=== PATIENT | female | born 1935 ===

== ENCOUNTER 2016-09-27 17:15 | Inpatient (IN) | payer OTHER, MEDICARE ==
[~2016-09-27] VITALS: Ht 165.1 cm; Wt 95.3 kg
[~2016-09-27 17:15] MED LIST: AMIODARONE200 MG PO; CLONAZEPAM0.5 MG PO; CLONAZEPAM1 MG PO; CYMBALTA60 MG PO; DILTIAZEM HCL120 M2 PO; DILTIAZEM HCL180 MG PO; DIOVAN 160 MG160 MG PO; FUROSEMIDE20 MG PO; FUROSEMIDE40 MG PO; HYDRALAZINE HCL10 MG PO; HYDROXYCHLOROQ200 MG PO; LEVOFLOXACIN500 MG PO; LEVOTHROID SO0.05 MG PO; NEXIUM 40MG40 MG PO; NOVOLOG MI300 UNITS/ SC; NOVOLOG MIX 70/33 ML SC; PREDNISONE 2.52.5 MG PO; PREDNISONE5 MG PO; Robitussin AC PO; TOPROL XL25 MG PO; XARELTO20 M1 PO; [UNRECOGNIZED DRUG - OTHER] PO
--- NOTE | 2016-09-27 17:37 | ED DYSPNEA/ASTHMA COMPLAINT ---
History of Present Illness General Chief Complaint: Upper Respiratory Sx/Fever Stated Complaint: FEVER,COUGH,CONGESTION Source: patient, family Exam Limitations: no limitations Vital Signs & Intake/Output Vital Signs & Intake/Output Vital Signs Date Time Temp Pulse Resp B/P B/P Pulse O2 O2 Flow FiO2 Mean Ox Delivery Rate 10/01 1537 97.5 20 96 Room Air 10/01 1456 100 140/72 10/01 1455 100 140/98 10/01 0928 98 154/90 10/01 0927 98 154/90 10/01 0803 97.8 98 24 154/90 93 Room Air 10/01 0800 Room Air 10/01 0642 95 124/76 10/01 0000 Room Air 09/30 2300 98.8 104 22 126/74 96 Room Air 09/30 2132 104 126/74 ED Intake and Output 10/01 0000 09/30 1200 Intake Total 1324 Output Total 1600 400 Balance -276 -400 Intake, IV 294 Intake, Oral 1030 Number 0 Bowel Movements Output, Urine 1600 400 Allergies Coded Allergies: NO KNOWN ALLERGIES (NONE) (09/06/10) Triage Nurses Notes Reviewed? yes HPI: 80-year-old female arrived to triage to room 1 for evaluation of cough and congestion that occurred 2 days ago. She has been having mild shortness of breath and wheezing with no fever. sHe denies any chest pain or abdominal pain. She denies any type of pain at this time. She does have a slight sore throat but no ear pain or sinus congestion. (MADHAV ACUNA APRN) Reconcile Medications Albuterol Sulfate (Ventolin Hfa) 90 MCG HFA.AER.AD 2 PUF INH Q6 BREATHING Budesonide/Formoterol Fumarate (Symbicort 80-4.5 Mcg Inhaler) 80 MCG-4.5 MCG/ ACTUATION HFA.AER.AD 2 PUF INH BID brathing Calcium Carbonate/Vitamin D3 (Calcium 500 + D Tablet) (Unknown Strength) TABLET (Unknown Dose) PO DAILY SUPPLEMENT (Reported) Clonazepam 0.5 MG TABLET 1 TAB PO QPM SLEEP (Reported) Diltiazem HCl (Cartia Xt) 120 MG CAP.ER.24H 1 CAP PO DAILY HEART/BP (Reported ) Duloxetine HCl 60 MG CAPSULE.DR 1 CAP PO DAILY NERVE PAIN (Reported) Esomeprazole (Nexium) 40 MG CAPSULE.DR 1 CAP PO DAILY GI (Reported) Furosemide 40 MG TABLET 1 TAB PO DAILY DIURETIC (Reported) Hydroxychloroquine Sulfate 200 MG TABLET 1 TAB PO DAILY RA . Insulin Degludec (Tresiba Flextouch U-200) 200 UNIT/ML (3 ML) INSULN.PEN 40 UNITS SC DAILY DM (Reported) Levothyroxine Sodium 50 MCG TABLET 1 TAB PO DAILY THYROID (Reported) Metoprolol Succinate 25 MG TAB 0.5 TAB PO DAILY HEART/BP (Reported) Mv,Min #10/FA/D3/Alip Acid/Lut (Strovite One Caplet) 1 MG-1,000 UNIT-15 MG-5 MG TABLET 1 TAB PO DAILY SUPPLEMENT (Reported) Prednisone 2.5 MG TABLET 1 TAB PO DAILY RA (Reported) Prednisone 20 MG TABLET 40 MG PO DAILY help brathing please take 2 tabs daily for 4 days, start tomorrow and stop after 4 days Rivaroxaban (Xarelto) 20 MG TABLET 1 TAB PO DAILY BLOOD THINNER (Reported) with food Valsartan 160 MG TABLET 1 TAB PO DAILY BP (Reported) (XIOMARA MORSE,ROWDY Redman) Past History Travel History Traveled to [place] past 21 day No Medical History Any Pertinent Medical History? 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 MOTHER (Had a history of diabetes). . Hx Contributory? No (MADHAV ACUNA APRN) Review of Systems Review of Systems Constitutional: Reports: weakness. EENTM: Reports: throat pain. Respiratory: Reports: cough, short of breath, wheezing. Cardiovascular: Reports: no symptoms. GI: Reports: no symptoms. Genitourinary: Reports: no symptoms. Musculoskeletal: Reports: no symptoms. Skin: Reports: no symptoms. Neurological/Psychological: Reports: no symptoms. Hematologic/Endocrine: Reports: no symptoms. Immunologic/Allergic: Reports: no symptoms. All Other Systems: Reviewed and Negative (MADHAV ACUNA APRN) Physical Exam Physical Exam General Appearance: well developed/nourished, no apparent distress, alert, awake , comfortable Head: atraumatic, normal appearance Neck: normal inspection, supple, full range of motion Respiratory: wheezing Cardiovascular: regular rate/rhythm Peripheral Pulses: 2+ radial (R), 2+ radial (L) Gastrointestinal: normal bowel sounds, soft, non-tender Extremities: normal inspection, normal capillary refill, normal range of motion, no edema Neurologic/Psych: no motor/sensory deficits, awake, alert, oriented x 3, normal gait, normal mood/affect Skin: intact, normal color, warm/dry Core Measures ACS in differential dx? No Severe Sepsis Present: No Septic Shock Present: No (MADHAV ACUNA APRN) Progress Differential Diagnosis: bronchitis, CHF, pneumonia, FLU Plan of Care: Orders Procedure Date/time Status RT: Reevaluation 10/01 1136 Active RT OVER-RIDE 10/01 UNK Complete Discharge Patient 10/01 UNK Active AEROSOL CHG 09/30 UNK Complete Current Medications Sig/Jackson Start time Last Medication Dose Stop Time Status Admin Azithromycin 250 MG DAILY 10/01 1000 CAN (Zithromax) Laboratory Tests 10/01/16 0647: Anion Gap 8, Estimated GFR > 60, BUN/Creatinine Ratio 28.3 H CXR Impression: SEE BELOW Initial ED EKG: AFIB, nonspecific ST T wave chg Prior EKG: unchanged Comments: PATIENT: NICOLE MACHUCA PRESENT AGE: 80 PATIENT ACCOUNT NO: [id number] : 35 LOCATION: [facility] ORDERING PHYSICIAN: MADHAV ACUNA APRN SERVICE DATE: 09/27/16 EXAM TYPE: RAD - XRY-PORTABLE CHEST XRAY EXAMINATION: XR PORTABLE CHEST CLINICAL INFORMATION: Shortness of breath, cough and fever. COMPARISON: Chest x-ray of 02/06/2016, 07/25/2015 and 07/18/2015. CT chest of 07/19/2015. TECHNIQUE: Portable upright AP view of the chest was obtained. FINDINGS: The cardiomediastinal silhouette is stable with [id number] cardiomegaly. The lungs are mildly hypoexpanded. No focal consolidation, changes of congestion or pleural effusions. No pneumothorax. Mild diffuse reticular lung markings are stable. 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 IMPRESSION: No plain radiographic evidence of pneumonia. No acute pulmonary process. Stable cardiomegaly. DICTATED BY: FESTUS SCHRADER MD DATE/TIME DICTATED:09/27/161832 EMERGENCY ROOM PHYSICIAN:KELLY DATE/TIME TRANSCRIBED:09/27/161832 CONFIDENTIAL, DO NOT COPY WITHOUT APPROPRIATE AUTHORIZATION. <Electronically signed in Other Vendor System> SIGNED BY: RACIEL MORSE,ANAL 09/27/161841 explained blood work and chest x-ray results to family. Explained we will give her prednisone and antibiotics to cover but we are waiting for flu swab. Family is aware that her blood sugars have been all over the place. case discussed with Dr. Tesfaye AND dR. Abrams. 9 PM patient still continues to feel weakness, sodium level 125 flu swab negative- I spoke to Dr. Ramirez and we will admit to telemetry due to atrial fibrillation but she has hyponatremia, BROCHITIS. I added on an acetone level due to hyperglycemia despite daughter saying she is having higher sugars, less likely DKA but will add in differential. (MADHAV ACUNA APRN) Departure Departure Time of Disposition: 2036 Disposition: STILL A PATIENT Condition: Stable Clinical Impression Primary Impression: Bronchitis Secondary Impressions: Atrial fibrillation Qualifiers: Atrial fibrillation type: chronic Qualified Code: I48.2 - Chronic atrial fibrillation Hyperglycemia Hyponatremia Referrals: JANA ARCHER MD (PCP/Family) Departure Forms: Customer Survey General Discharge Information Admission Note Spoke With: ELISE RAMIREZ MD Documentation of Exam: Documentation of any treatments & extenuating circumstances including Concerns Regarding Discharge (functional status, medication knowledge or non-compliance, living conditions, etc.) that warrant an admission rather than observation: Will need admission to telemetry due to history of atrial fibrillation and rate has been variable from 90-110. Free water restriction due to hyponatremia. Possible endocrinology consultation due to labile blood sugars. (MADHAV ACUNA APRN) Departure Prescriptions: Current Visit Scripts Budesonide/Formoterol Fumarate (Symbicort 80-4.5 Mcg Inhaler) 2 PUF INH BID #1 INHAL Prednisone 40 MG PO DAILY #8 TAB please take 2 tabs daily for 4 days, start tomorrow and stop after 4 days Hydroxychloroquine Sulfate 1 TAB PO DAILY #30 . Albuterol Sulfate (Ventolin Hfa) 2 PUF INH Q6 #1 INHAL PA/FEATHER DUSTER WINDER Co-Sign Statement Statement: ED Attending supervision documentation- [x] I saw and evaluated the patient. I have also reviewed all the pertinent lab results and diagnostic results. I agree with the findings and the plan of care as documented in the PA's/FEATHER DUSTER WINDER's documentation. [] I have reviewed the ED Record and agree with the PA's/FEATHER DUSTER WINDER's documentation. [] Additions or exceptions (if any) to the PAs/FEATHER DUSTER WINDER's note and plan are summarized below: [] (XIOMARA MORSE,ROWDY Redman) Critical Care Note Critical Care Note Critical Care Time: non-applicable (MADHAV ACUNA APRN)
--- NOTE | 2016-09-27 17:42 | NUR ---
PT TO ED C/O FEVER, CONGESTION, NON PRODUCTIVE COUGH AND SORE THROAT FOR A FEW DAYS. PT REPORTS CP DUE TO CONGESTION. PT DENIES SOB, V/D.
[2016-09-27] MEDS ORDERED: NEXIUM40 M1 PO (18:22)
[2016-09-27] MEDS ORDERED: CARTIA XT120 M1 PO (18:22)
[2016-09-27] MEDS ORDERED: FUROSEMIDE40 M1 PO (18:22)
[2016-09-27] MEDS ORDERED: DULOXETINE HCL60 MG PO (18:22)
[2016-09-27] MEDS ORDERED: VALSARTAN160 M1 PO (18:23)
[2016-09-27] MEDS ORDERED: XARELTO20 M2 PO (18:23)
[2016-09-27] MEDS ORDERED: STROVITE ONE C1 EACH PO (18:23)
[2016-09-27] MEDS ORDERED: LEVOTHYROXINE50 MCG PO (18:23)
[2016-09-27] MEDS ORDERED: TRESIBA FL200 UNIT/1 SC (18:24)
[2016-09-27] MEDS ORDERED: METOPROLOL SUCC25 M1 PO (18:24)
[2016-09-27] MEDS ORDERED: CLONAZEPAM0.5 M2 PO (18:25)
[2016-09-27] MEDS ORDERED: HYDROXYCHLOROQ200 M2 PO (18:25)
[2016-09-27] MEDS ORDERED: CALCIUM 500 +1 EAC5 PO (18:26)
[2016-09-27 18:30] LABS: ABSOLUTE BASOPHIL COUNT 0 /CUMM (0.0-0.2); ABSOLUTE EOSINOPHIL COUNT 0.1 /CUMM (0.0-0.7); ABSOLUTE GRANULOCYTE CT 9.1 /CUMM (1.4-6.5); ABSOLUTE LYMPH COUNT 0.7 /CUMM (1.2-3.4); ABSOLUTE MONOCYTE COUNT 0.7 /CUMM (0.10-0.60); BASOPHIL % 0.1 % (0.0-2.0); EOSINOPHIL % 0.6 % (0-5); HEMATOCRIT 41.6 % (37-47); MEAN CORPUSCULAR HGB 29.7 PG (27.0-31.0); MEAN CORPUSCULAR HGB CONC 33.1 G/DL (33.0-37.0); MEAN CORPUSCULAR VOLUME 89.8 FL (81.0-99.0); MEAN PLATELET VOLUME 10.4 FL (7.4-10.4); PLATELET COUNT 214 /CUMM (130-400); RBC DISTRIBUTION WIDTH 14.6 % (11.5-14.5); RED BLOOD CELL CT 4.64 /CUMM (4.20-5.40); WHITE BLOOD CELL COUNT 10.5 /CUMM (4.8-10.8)
[2016-09-27 18:33] LABS: GRANULOCYTE % 86.6 % (42.2-75.2)
--- NOTE | 2016-09-27 18:36 | NUR ---
LABS AND CULTURE SENT
--- NOTE | 2016-09-27 18:42 | RADIOLOGY REPORT ---
EXAMINATION: XR PORTABLE CHEST CLINICAL INFORMATION: Shortness of breath, cough and fever. COMPARISON: Chest x-ray of 02/06/2016, 07/25/2015 and 07/18/2015. CT chest of 07/19/2015. TECHNIQUE: Portable upright AP view of the chest was obtained. FINDINGS: The cardiomediastinal silhouette is stable with [id number] cardiomegaly. The lungs are mildly hypoexpanded. No focal consolidation, changes of congestion or pleural effusions. No pneumothorax. Mild diffuse reticular lung markings are stable. 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 IMPRESSION: No plain radiographic evidence of pneumonia. No acute pulmonary process. Stable cardiomegaly.
--- NOTE | 2016-09-27 18:54 | NUR ---
PT ASSISTED TO BEDSIDE COMMODE AND URINE SENT
--- NOTE | 2016-09-27 19:08 | NUR ---
PT MEDICATED ORDERED
--- NOTE | 2016-09-27 19:31 | NUR ---
ASSUMED PRIMARY CARE FLU SWAB SENT, AUDIBLE WHEEZES NOTED. PER FAMILY FEELS BETTER.
--- NOTE | 2016-09-27 21:10 | History & Physical ---
CRISTIANO MORSE,[facility] 09/27/162109: General Information and HPI MD Statement: I have seen and personally examined NICOLE MACHUCA and documented this H&P. The patient is a 80 year old F who presented with a patient stated chief complaint of [fever, cough and wheezing]. Source of Information: patient, family Exam Limitations: no limitations History of Present Illness: Patient is a 80 year-old lady with PMH of atrial fibrillation (on Xarelto), Rheumatoid arthritis on chronic steroids, diastolic CHF, HTN, HLD, DM, hypothyroidism, obesity, who is brought in to the ED after 2-3 days of persistent fever, cough, sore throat, congestion, wheezing and difficulty breathing. Per the daughter at bedside, patient has had max Temperature of 101 with increased coughs and wheezing with minimal sputum. Denies sick contacts although daughter had mild URI symptoms 1-2 weeks ago, she also mentioned that she attended wedding ceremonies for her grand daughter this past week and may have not gotten enough rest. Denies chest pain, palpitation, SOB, does not have any underlying pulmonary disease and does not use O2 at home. Still feels congested and wheezy, with stuffy nose and dry coughs which worsens at night time. Also denies any abdominal pain, changes in stool or urine. Reports hot flushes since being restarted on prednisone. Patient was put on prednisone 12.5 mg 2-3 weeks ago which was tapered down gradually and currently kept on 5 mg daily. Allergies/Medications Allergies: Coded Allergies: NO KNOWN ALLERGIES (NONE) (09/06/10) Home Med list Calcium Carbonate/Vitamin D3 (Calcium 500 + D Tablet) (Unknown Strength) TABLET (Unknown Dose) PO DAILY SUPPLEMENT (Reported) Clonazepam 0.5 MG TABLET 1 TAB PO QPM SLEEP (Reported) Diltiazem HCl (Cartia Xt) 120 MG CAP.ER.24H 1 CAP PO DAILY HEART/BP (Reported ) Duloxetine HCl 60 MG CAPSULE.DR 1 CAP PO DAILY NERVE PAIN (Reported) Esomeprazole (Nexium) 40 MG CAPSULE.DR 1 CAP PO DAILY GI (Reported) Furosemide 40 MG TABLET 1 TAB PO DAILY DIURETIC (Reported) Hydroxychloroquine Sulfate 200 MG TABLET 1 TAB PO DAILY RA (Reported) Insulin Degludec (Tresiba Flextouch U-200) 200 UNIT/ML (3 ML) INSULN.PEN 40 UNITS SC DAILY DM (Reported) Levothyroxine Sodium 50 MCG TABLET 1 TAB PO DAILY THYROID (Reported) Metoprolol Succinate 25 MG TAB 0.5 TAB PO DAILY HEART/BP (Reported) Mv,Min #10/FA/D3/Alip Acid/Lut (Strovite One Caplet) 1 MG-1,000 UNIT-15 MG-5 MG TABLET 1 TAB PO DAILY SUPPLEMENT (Reported) Prednisone 2.5 MG TABLET 1 TAB PO DAILY RA (Reported) Rivaroxaban (Xarelto) 20 MG TABLET 1 TAB PO DAILY BLOOD THINNER (Reported) with food Valsartan 160 MG TABLET 1 TAB PO DAILY BP (Reported) Past History Travel History Traveled to [place] past 21 day No Medical History Neurological: NONE EENT: NONE Cardiovascular: AFIB, CHF, diastolic CHF, hypertension, hyperlipidemia Respiratory: NONE Gastrointestinal: NONE Hepatic: NONE Renal: NONE Musculoskeletal: NONE Psychiatric: NONE Endocrine: diabetes, hypothyroidism, obesity Blood Disorders: NONE Cancer(s): NONE 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 MOTHER (Had a history of diabetes). . Psychosocial History Services at Home: None Smoking Status: Never Smoked ETOH Use: denies use Illicit Drug Use: denies illicit drug use Functional Ability ADLs Independent: dressing, eating, toileting, bathing. Ambulation: independent IADLs Independent: shopping, housework, finances, food prep, telephone, transportation , medication admin. Review of Systems Review of Systems Constitutional: Reports: chills, fever. Denies: weakness. EENTM: Reports: no symptoms. Cardiovascular: Denies: chest pain, palpitations, peripheral edema, syncope. Respiratory: Reports: cough, sputum production (minimal), wheezing. Denies: short of breath, stridor. GI: Denies: abdominal pain, constipation, diarrhea, nausea, vomiting. Genitourinary: Denies: dysuria, frequency. Musculoskeletal: Reports: no symptoms. Skin: Reports: no symptoms. Neurological/Psychological: Reports: no symptoms. Hematologic/Endocrine: Reports: no symptoms. Exam & Diagnostic Data Last 24 Hrs of Vital Signs/I&O Vital Signs Date Time Temp Pulse Resp B/P B/P Pulse O2 O2 Flow FiO2 Mean Ox Delivery Rate 09/28 0330 92 152/88 09/28 0028 99.3 99 16 180/104 95 Room Air 09/28 0023 Room Air 09/27 2324 98.6 99 20 169/103 09/27 2319 98.6 99 20 169/103 96 Room Air 09/27 2154 98.7 108 20 182/86 96 Room Air 09/27 1931 98.2 114 20 187/89 94 Room Air 09/27 1908 96 Room Air 09/27 1832 96 09/27 1734 98.1 114 21 178/110 95 Room Air Intake & Output 09/28 0800 09/28 0000 09/27 1600 Intake Total 1000 Output Total Balance 1000 Intake, IV 1000 Patient 95.254 kg 95.254 kg Weight Weight Reported by Patient Measurement Method Physical Exam General Appearance Alert, Oriented X3, Cooperative, No Acute Distress Skin No Significant Lesion Skin Temp/Moisture Exam: Warm/Dry Sepsis Skin Exam (color): Normal for Ethnicity HEENT Atraumatic, PERRLA, Mucous Membr. moist/pink, pupils round and reactive to light Neck Supple Cardiovascular Normal S1, Normal S2, No Murmurs Lungs wheezing and rhonchi bilaterally, crackles bibasilar bilaterally Abdomen Normal Bowel Sounds, Soft, No Tenderness Neurological Normal Speech, Normal Tone, Cranial Nerves 3-12 NL Extremities Normal Pulses, No Tenderness/Swelling, 1+ pitting edema bilaterally, decreaed ROM on the left shoulder Vascular Normal Pulses, Pulses Symmetrical Sepsis Peripheral Pulse Location: Dorsalis Pedis Last 24 Hrs of Labs/Bry: Laboratory Tests 09/28/16 0120: Troponin I Cancelled 09/28/16 0035: Troponin I 0.02 09/27/16 185: Urinalysis LIGHT H, Urine Color YEL, Urine Clarity CLEAR, Urine pH 6.5, Ur Specific [place] 1.015, Urine Protein 100 H, Urine Ketones NEG, Urine Nitrite NEG, Urine Bilirubin NEG, Urine Urobilinogen 0.2, Ur Leukocyte Esterase NEG, Ur Microscopic SEDIMENT EXAMINED, Urine RBC 5-10 H, Urine WBC 25-50 H, Ur Epithelial Cells FEW, Urine Mucus RARE, Urine Hemoglobin SMALL H, Urine Glucose >=1000 H 09/27/16 1850: Urine Osmolality 676, Ur Random Creatinine 36.8, Ur Random Sodium 12 L, Ur Random Potassium 19.1, Fraction Sodium Excret 0.2 09/27/161819: Anion Gap 6, Estimated GFR > 60, BUN/Creatinine Ratio 28.3 H, Glucose 486 H, Serum Osmolality 289, Calcium 8.3 L, Magnesium 1.8, Total Bilirubin 0.6, AST 28 , ALT 52, Alkaline Phosphatase 167 H, Troponin I 0.01, Upy-A-Wjgxoxkxeqh Pept 2410 H, Total Protein 6.8, Albumin 3.4 L, Globulin 3.4, Albumin/Globulin Ratio 1.0 L, TSH 1.590, Free T4 1.17, Cortisol PM Sample 26.4 H, CBC w Diff NO MAN DIFF REQ, RBC 4.64, MCV 89.8, MCH 29.7, RDW 14.6 H, MPV 10.4, Gran % 86.6 H, Lymphocytes % 6.2 L, Monocytes % 6.5, Eosinophils % 0.6, Basophils % 0.1, Absolute Granulocytes 9.1 H, Absolute Lymphocytes 0.7 L, Absolute Monocytes 0.7 H, Absolute Eosinophils 0.1, Absolute Basophils 0, PUBS MCHC 33.1, Acetone Level NEGATIVE Microbiology 09/27 1924 NASOPHARYN: Influenza Virus A & B Rapid Smear - COMP 09/27 1849 URINE ROUT: Urine Culture - RECD 09/27 1834 BLOOD: Blood Culture - RECD 09/28 1819 BLOOD: Blood Culture - RECD Assessment/Plan Assessment: Patient is a 80 year-old lady with PMH of atrial fibrillation (on Xarelto), Rheumatoid arthritis on chronic steroids, diastolic CHF, HTN, HLD, DM, hypothyroidism, obesity, who is brought in to the ED after 2-3 days of persistent fever, cough, sore throat, congestion, wheezing and difficulty breathing. Problem list: Acute bronchitis Wheezing and rhonchi diffuse and bilateral. CXR shows no evidence of pneumonia. No acute pulmonary process. * O2 supplementation as needed, to keep SO2>92% * TRC/Nebs * Robitussin for dry coughs * monitor vital for fevers History CHF, Afib, HTN Rate is currently in 90s-100s. Patient has history of CHF, last ECHO 07/23/15 ( [facility]) showed estimated LVEF of approximately 35-40%, with global hypokinesis. ProBNP elevated to 2410 from 1040. Has mild pedal edema and bibasilar crackles. * continue lasix 40 mg PO daily * Received one dose 40 mg IV tonight * continue cardizem 120 mg daily * gave an extra dose of 5 mg IV cardizem this evening * continue metoprolol succinate 25 mg daily * continue valsartan 160 mg daily * continue xarelto Hyperglycemia History of diabetes on Tresiba 40 units daily. Use of steroids may have contributed to the uncontrolled sugars. * Novolog insulin SS * Levemir 16 units BID * Accuchecks TID/AC HS Hyponatremia Most likely pseudohyponatremia in the setting of elevated glucose, corrected Na is 131-134. serum osmolality and urine osmolality are within normal limits. there is glucosuria and decreased urinary sodium excretion. * Will repeat BEP in am Rheumatoid arthritis Recently had increased shoulder pain for which she was put on prednisone, now tapered to 5 mg daily. * Continue prednisone at 5 mg daily, home dose * Hydroxychloroquine on hold due to possible worsening of bronchospasm on hydroxychloroquine Hypothyroidism * TFT (hypothyroidism can contribute to her QTc prolongation) * continue levothyroxine at home dose awaiting TFT results Will continue duloxetine and clonazepam for anxiety/depression Pain control with Tylenol, IV acetaminophen, Oxycodone DVT px with Xarelto CHF diet FC As Ranked By This Provider Problem List: 1. Hyperglycemia 2. Hyponatremia 3. Cough, persistent 4. Diabetes 5. Atrial fibrillation Qualifiers Atrial fibrillation type: chronic Qualified Code: I48.2 - Chronic atrial fibrillation 6. Rheumatoid arthritis 7. Hypertension 8. CHF (congestive heart failure) 9. Hyperlipidemia 10. Bronchitis Core Measures/Miscellaneous Acute Coronary Syndrome ACS Diagnosis: No Cerebrovascular Accident CVA/TIA Diagnosis: No Congestive Heart Failure CHF Diagnosis: No Venous Thromboembolism VTE Risk Factors: Acute medical illness, Age > 40 No [facility] VTE prophylaxis d/t: VTE low risk, No contraindications No VTE Pharm Prophylaxis d/t: VTE low risk, No contraindications VTE Diagnosis: No VTE Type: NONE VTE Confirmed by (Test): NONE Severe Sepsis Severe Sepsis Present: No Septic Shock Septic Shock Present: No Miscellaneous Documentation Attending Case Discussed With: ASHLEY MORSE,ELISE Doyt Primary Care Physician: JANA ARCHER MD Patient sees these Specialists Dr. Arnold, pulmonary Dr. Loyd, cardiology Dr. Parisa Walker, batching operator Level of Patient Care: Telemetry GURWINDER ALEMAN 09/27/162123: Resident Review Statement Resident Statement: examined this patient, discussed with computer science intern, agreed with computer science intern Other Findings: This is a 80-year-old pleasant female with past medical history of atrial fibrillation on Xarelto, rheumatoid arthritis on chronic steroids, hypertension, hyperlipidemia, diabetes mellitus, hypothyroidism, diastolic congestive heart failure, obesity came in to [facility] today with chief complaint of fever cough and congestion since 3 days prior to admission. The patient was doing all right, she had her granddaughter's wedding one week prior to admission, it was a stressful time for the entire family, her daughter who is with her was sick with generalized cold and congestion, and since 3 days prior to admission Ms machuca, her mother started to not feeling herself she had cold,cough and congestion, low-grade fever along with weakness.She also noticed that since 2 days prior to presentation, her lower extremity swelling was worsening therefore she took 60 mg of Lasix instead of her usual 40 mg of Lasix. She denied any productive sputum, where she did complain of mild headache, anorexia and nausea. She denied any chest pain, palpitations, abdominal pain, diarrhea, constipation, shortness of breath. Vitals at the emergency department temperature of 98.2, pulse of 114, respiration of 21, BP 178/110 Physical exam she was alert oriented to time place and person, in mild distress. HEENT, atraumatic, pupils equal and reactive to light, no lymphadenopathy, mild redness present in the throat. CVS S1 and S2 present, no murmur. RS air entry bilaterally present, bilateral basal crackles heard, wheezing present. Abdomen soft, nontender. Neurological exam essentially nonfocal. Bilateral lower extremity edema 1+. Relevant labs white count of 10.5, hCG H of 13.8/41.6, platelet of 214. Sodium of 125, when corrected for hyperglycemia for 86, corrected sodium was noted to be 134, BUN and creatinine went/0.6. Initial set of troponins was negative, serum acetone was negative, UA was positive for thousand of glucose, 25-30 WBCs however she denied any symptoms. EKG showed atrial fibrillation with a rate of 128, EDC of 508. ProBNP was found to be elevated at 2410. Chest x-ray did not show any congestion, stable cardiomegaly. Last echocardiogram showed [id number] ejection fraction of 40-45%, left atrial enlargement, [id number] MR, moderate TR. Problem #1 acute bronchitis. * Patient has a history of cold cough and congestion, no white count and no fever however she was febrile at home, positive history of sick contacts, daughter was sick, no productive sputum. * Streptococcal throat and rapid flu was negative. * Continue to follow blood cultures, urine cultures and lower respiratory cultures. * We will keep the patient off antibiotics for now. * Patient received one time a 50 mg of prednisone. * Patient is on inhalers at home, reason unclear. * Continue TRC nebulizations. * We'll hold off hydroxychloroquine as that can cause bronchospasm. #2 hyperglycemia history of diabetes mellitus treated for diabetic neuropathy. * Patient was found to have a sugar of 486, anion gap normal, serum bicarbonate normal, see Mr. negative. * Hyperglycemia most likely related to recent steroid taper. * Continue to monitor blood sugars. * Continue fingerstick, continue NovoLog sliding scale, consistent carbohydrate diet. * Patient takes 21 units of NovoLog mix at home, currently will put at 80% H of the home dose with Levemir 60 units twice a day. * Hyponatremia also most likely secondary to hyperglycemia. Problem #3 history of chronic atrial fibrillation. * Patient's rate was found to been 128. * She received one time of IV Cardizem at the emergency department. * Currently rate under control. * Continue metoprolol and Cardizem for rate control, continue Xarelto for anticoagulation. * Ct telemetry monitoring. * Cardiology consult with Dr. Palmer. Problem #4 history of systolic heart failure. * Patient seems to be in fluid overload, she had recently increased Lasix to 60 mg daily since 2 days prior to admission. * She received one time of IV 40 mg Lasix at the emergency department, will give additional 20 mg IV Lasix. * Continue IV 40 mg Lasix. * Continue intake and output, check daily weights. * Cardiology consult in a.m. with Dr. Plunkett in am. Problem #5 history of hypertension. * Continue home medication Cozaar 50 mg daily. Problem #6 hyponatremia. * Corrected sodium found to be 134. * The hyponatremia most likely a pseudohyponatremia secondary to hyperglycemia. * We will hold off any IV hydration for now as the patient seems to be in fluid overload. * Continue to monitor sodium. Problem #7 history of GERD. * Continue Prilosec 40 mg daily. Problem # 8 history of rheumatoid arthritis. * Patient has history of significant RA * will contineu 5 md po prednisone * hyperglydemia most likel worsened due ot recent steroid taper. * ct to watch sugars closely. FC CC-3 Mild, moderate, sever PP DVt px charla RAMIREZ MD,ELISE 09/28/16 1150: Attending MD Review Statement Attending Statement Attending MD Statement: examined this patient, discuss w/resident/PA/FERRULER, agreed w/resident/PA/FERRULER, discussed with family, reviewed EMR data (avail), discussed with nursing, reviewed images, amended to note Attending Assessment/Plan: Problems: -Hyperglycemia -Factitious hyponatremia secondary to hyperglycemia -Lower respiratory disease with bronchospasm -Atrial fibrillation -Hypothyroidism -Hypertension -Dyslipidemia -Rheumatoid arthritis -Anxiety/depression Plan: -Admit telemetry -Continue Levemir -Sliding-scale insulin -TRC with neb treatments cough preparation -Continue Revaroxaban, diltiazem, and metoprolol -Continue level thyroxine -Continue losartan and furosemide -continue her narcotic analgesic -Continue other maintenance medications ELA MORSE,[facility] 09/29/16 0947: Attending MD Review Statement Attending Statement Attending MD Statement: examined this patient, discuss w/resident/PA/FERRULER, agreed w/resident/PA/FERRULER, discussed with family, reviewed EMR data (avail)
--- NOTE | 2016-09-27 21:32 | NUR ---
PT GIVEN TEA AND TOAST
--- NOTE | 2016-09-27 21:45 | NUR ---
PT BRY FLUIDS WELL REMAINS IN AFIB, TO BE ADMITTED.
--- NOTE | 2016-09-27 22:33 | NUR ---
HOUSESTAFF AT BEDSIDE. DAUGHTER DISCUSSING PLAN OF CARE WITH HOUSESTAFF. ORDER FOR INSULIN CLARIFIED WITH TIM IN PHARMACY AND HOUSESTAFF PRIOR TO GIVING TO PT.
[2016-09-27] MEDS ORDERED: PREDNISONE2.5 M1 PO (22:34)
--- NOTE | 2016-09-27 22:34 | NUR ---
NICOLE MACHUCA Nurse Note by: CECY ROGER. I agree with the GROUP CARE WORKER findings/evaluation of this patient's condition. Entered by: CECY ROGER. Date: 09/27/16 Time: 2233
--- NOTE | 2016-09-27 23:22 | NUR ---
PT ASSIGNED TO ROOM 180 BED 1
--- NOTE | 2016-09-27 23:24 | NUR ---
CONT WITH AUDIBLE WHEEZES AUSCULTATED. MED WITH 5 MG CARDIZEM REMAINS AFIB RATE 99-115.
--- NOTE | 2016-09-28 00:02 | NUR ---
REPORT GIVEN TO TELE.
--- NOTE | 2016-09-28 00:09 | NUR ---
THROAT C/S OBTAINED AND SENT [facility].
[2016-09-28 00:28] VITALS: BP 180/104
[2016-09-28 03:30] VITALS: BP 152/88
[2016-09-28 07:58] VITALS: BP 146/84
--- NOTE | 2016-09-28 10:19 | PN- Housestaff ---
STEVEN MORSE,[facility] 09/28/16 1018: Subjective Follow-up For: fever, cough and wheezing Tele-Events Since Last Visit: A. fib, heartrate 87-108, no overnight events. Subjective: Afebrile, WBCs within normal, hemodynamically stable, no acute overnight events reported. Patient had multiple nonproductive coughs hearing examining her. Patient denies chest pain or palpitation. She is saturating well on room air. Review of Systems Constitutional: Reports: see HPI. Objective Last 24 Hrs of Vital Signs/I&O Vital Signs Date Time Temp Pulse Resp B/P B/P Pulse O2 O2 Flow FiO2 Mean Ox Delivery Rate 09/28 1620 98.9 82 20 132/78 98 Room Air 09/28 1549 110 132/78 09/28 1211 98 Room Air Room Air 09/28 0935 96 Room Air 09/28 0918 115 146/84 09/28 0916 115 146/84 09/28 0800 Room Air 09/28 0758 99.0 115 18 146/84 93 Room Air 09/28 0330 92 152/88 09/28 0028 99.3 99 16 180/104 95 Room Air 09/28 0023 Room Air 09/27 2324 98.6 99 20 169/103 09/27 2319 98.6 99 20 169/103 96 Room Air 09/27 2154 98.7 108 20 182/86 96 Room Air 09/27 1931 98.2 114 20 187/89 94 Room Air 09/27 1908 96 Room Air 09/27 1832 96 09/27 1734 98.1 114 21 178/110 95 Room Air Intake & Output 09/28 1600 09/28 0800 09/28 0000 Intake Total 967.5 240 1000 Output Total 500 650 Balance 467.5 -410 1000 Intake, IV 187.5 1000 Intake, Oral 780 240 Output, Urine 500 650 Patient 95.254 kg 95.254 kg Weight Weight Reported by Patient Measurement Method Physical Exam General Appearance: Alert, Oriented X3, Cooperative, No Acute Distress HEENT: Atraumatic, PERRLA, EOMI, Mucous Membr. moist/pink Cardiovascular: Regular Rate, Normal S1, Normal S2, No Murmurs Lungs: diffuse wheezing with decrease air entry , nonproductive cough Abdomen: Normal Bowel Sounds, Soft, No Tenderness Neurological: Normal Speech Extremities: No Clubbing, No Cyanosis, No Edema Current Medications: Current Medications Sig/Jackson Start time Last Medication Dose Route Stop Time Status Admin Acetaminophen 325 MG Q6P PRN 09/28 1200 AC PO Acetaminophen 650 MG Q6P PRN 09/27 2145 DC PO Acetaminophen 1,000 MG Q6P PRN 09/27 2145 AC IV Albuterol Sulfate 3 ML BID 09/28 1000 AC 09/28 INH 1212 Albuterol Sulfate 3 ML ONCE ONE 09/27 1830 DC 09/27 INH 09/27 183 1832 Benzocaine/Menthol 1 TALIA Q2P PRN 09/28 1600 AC PO Calcium/Vitamin D 500 MG DAILY 09/28 1000 AC 09/28 PO 0918 Clonazepam 0.5 MG QPM 09/28 2200 DC PO 10/05 2159 Clonazepam 0.5 MG QPM 09/28 0100 AC 09/28 PO 10/05 0057 0100 Diltiazem HCl 30 MG ONCE ONE 09/28 1530 CAN PO 09/28 1531 Diltiazem HCl 60 MG Q8 09/28 1400 AC 09/28 PO 1549 Diltiazem HCl 120 MG DAILY 09/28 1000 DC 09/28 PO 0918 Diltiazem HCl 0 .STK-MED ONE 09/27 2324 DC .ROUTE Diltiazem HCl 5 MG ONCE ONE 09/27 2300 DC 09/27 IV PUSH 09/27 2301 2324 Duloxetine HCl 60 MG DAILY 09/28 1000 AC 09/28 PO 0918 Enoxaparin Sodium 0 .STK-MED ONE 09/27 2325 DC SC Enoxaparin Sodium 40 MG DAILY 09/27 2157 DC 09/27 SC 2314 Furosemide 0 .STK-MED ONE 09/27 2342 DC IV Furosemide 20 MG ONCE ONE 09/27 2300 DC 09/27 IV 09/27 2301 2340 Guaifenesin 600 MG Q12 09/28 1156 AC 09/28 PO 1252 Guaifenesin 10 ML Q4P PRN 09/28 0330 AC 09/28 PO 0345 Hydroxychloroquine 200 MG DAILY 09/28 1000 CAN Sulfate PO Insulin Aspart 0 TIDAC 09/28 0800 DC SC Insulin Aspart 0 TIDAC 09/28 0800 AC 09/28 SC 1252 Insulin Aspart 0 Q4H 09/27 2230 DC 09/27 SC 2233 Insulin Detemir 16 UNITS BID 09/28 1000 AC 09/28 SC 0919 Ipratropium [place] 2.5 ML ONCE ONE 09/27 1830 DC 09/27 INH 09/27 183 1832 Levothyroxine Sodium 0.05 MG DAILY AC 09/28 0700 AC 09/28 PO 0652 Losartan Potassium 50 MG DAILY 09/28 1000 AC 09/28 PO 0916 Metoprolol Succinate 12.5 MG DAILY 09/28 1000 DC PO Metoprolol Succinate 12.5 MG DAILY 09/28 0230 AC 09/28 PO 0918 Omeprazole 40 MG DAILY AC 09/28 0700 AC 09/28 PO 0652 Oxycodone HCl 10 MG Q6P PRN 09/27 2145 AC PO Prednisone 0 .STK-MED ONE 09/27 1910 DC PO Prednisone 60 MG ONCE ONE 09/27 1830 DC 09/27 PO 09/27 183 1909 Rivaroxaban 20 MG 1700 09/28 1700 AC PO Sodium Chloride 1,000 ML Q13H 09/28 1200 AC 09/28 IV 1221 Sodium Chloride 1,000 ML BOLUS ONE 09/27 1745 DC 09/27 IV 09/27 1844 1830 Last 24 Hrs of Lab/Bry Results Last 24 Hrs of Labs/Mics: Laboratory Tests 09/28/16 0640: Troponin I 0.02 09/28/16 0120: Troponin I Cancelled 09/28/16 0035: Troponin I 0.02 09/27/16 185: Urinalysis LIGHT H, Urine Color YEL, Urine Clarity CLEAR, Urine pH 6.5, Ur Specific [place] 1.015, Urine Protein 100 H, Urine Ketones NEG, Urine Nitrite NEG, Urine Bilirubin NEG, Urine Urobilinogen 0.2, Ur Leukocyte Esterase NEG, Ur Microscopic SEDIMENT EXAMINED, Urine RBC 5-10 H, Urine WBC 25-50 H, Ur Epithelial Cells FEW, Urine Mucus RARE, Urine Hemoglobin SMALL H, Urine Glucose >=1000 H 09/27/16 185: Urine Osmolality 676, Ur Random Creatinine 36.8, Ur Random Sodium 12 L, Ur Random Potassium 19.1, Fraction Sodium Excret 0.2 09/27/161819: Anion Gap 6, Estimated GFR > 60, BUN/Creatinine Ratio 28.3 H, Glucose 486 H, Serum Osmolality 289, Calcium 8.3 L, Magnesium 1.8, Total Bilirubin 0.6, AST 28 , ALT 52, Alkaline Phosphatase 167 H, Troponin I 0.01, Acm-L-Jfvcsgdeavw Pept 2410 H, Total Protein 6.8, Albumin 3.4 L, Globulin 3.4, Albumin/Globulin Ratio 1.0 L, TSH 1.590, Free T4 1.17, Cortisol PM Sample 26.4 H, CBC w Diff NO MAN DIFF REQ, RBC 4.64, MCV 89.8, MCH 29.7, RDW 14.6 H, MPV 10.4, Gran % 86.6 H, Lymphocytes % 6.2 L, Monocytes % 6.5, Eosinophils % 0.6, Basophils % 0.1, Absolute Granulocytes 9.1 H, Absolute Lymphocytes 0.7 L, Absolute Monocytes 0.7 H, Absolute Eosinophils 0.1, Absolute Basophils 0, PUBS MCHC 33.1, Acetone Level NEGATIVE Microbiology 09/27 1924 NASOPHARYN: Influenza Virus A & B Rapid Smear - COMP 09/27 185 URINE ROUT: Urine Culture - RES BETA STREP GROUP B 09/27 1834 BLOOD: Blood Culture - RES 09/28 1819 BLOOD: Blood Culture - RES Assessment/Plan Assessment: Patient is a 80 year-old lady with PMH of atrial fibrillation (on Xarelto), Rheumatoid arthritis on chronic steroids, diastolic CHF, HTN, HLD, DM, hypothyroidism, obesity, who is brought in to the ED after 2-3 days of persistent fever, cough, sore throat, congestion, wheezing and difficulty breathing. Problem list: #Acute bronchitis Wheezing and rhonchi diffuse and bilateral. CXR shows no evidence of pneumonia. No acute pulmonary process. WBCs within normal limits and no fever. * O2 supplementation as needed, to keep SO2>92% * TRC/Nebs [id number] * Guaifenesin to help with the cough History CHF, Afib, HTN Rate is currently in 90s-110s. Patient has history of CHF, last ECHO 07/23/15 ( [facility]) showed estimated LVEF of approximately 35-40%, with global hypokinesis. ProBNP elevated to 2410 from 1040. Has mild pedal edema and bibasilar crackles. * We will hold Lasix * We repeat chest x-ray and if there is evidence of vascular congestion we will cut back the fluid and give IV furosemide 40 mg with a close follow-up to the renal function test tomorrow magnesium * We repeat echocardiogram as per cardiology * Switch cardizem 120 mg CD daily to Cardizem 60 mg every 6 until we better control the heart rate * continue metoprolol succinate 12.5 mg daily * Continue losartan 50 mg daily * continue xarelto Hyperglycemia History of diabetes on Tresiba 40 units daily. * Novolog insulin SS * Levemir 16 units BID * Accuchecks TID/AC HS Hyponatremia Most likely pseudohyponatremia in the setting of elevated glucose, corrected Na is 131-134. serum osmolality and urine osmolality are within normal limits. there is glucosuria and decreased urinary sodium excretion. * will repeat BEP in am Rheumatoid arthritis Recently had increased shoulder pain for which she was put on prednisone, now tapered to 5 mg daily. * continue prednisone at 5 mg daily, home dose * hydroxychloroquine 200 mg daily on hold due to possible worsening bronchospasm on hydroxychloroquine Hypothyroidism * continue levothyroxine Will continue duloxetine and clonazepam for anxiety/depression Pain control with Tylenol, IV acetaminophen, Oxycodone DVT px with Xarelto CHF diet FC Problem List: 1. Hyponatremia 2. Cough, persistent 3. Diabetes 4. Atrial fibrillation 5. Diabetes Pain Ratin Pain Location: head Pain Goal: Remain pain free Pain Plan: See A&P Tomorrow's Labs & Rationales: TAMAR RAMIREZ MD,ELISE 09/28/16 1207: Attending MD Review Statement Attending Statement Attending MD Statement: examined this patient, discuss w/resident/PA/PERSONNEL COORDINATOR, agreed w/resident/PA/PERSONNEL COORDINATOR, discussed with family, reviewed EMR data (avail), amended to note Attending Assessment/Plan: Mrs. Eugene notes headache and cough today. Tmax is 99.3 her heart rate is mildly elevated at approximately 110 and her blood pressure is also mildly elevated at 146 systolic. Her exam is notable for diffuse wheezing and a nonproductive cough. We should continue the plan as outlined yesterday. Nebulizer treatment should be increased to every 4 hours. We will treat the cough with guaifenesin and give her acetaminophen initially for her headache. As her heart rate is elevated we will discontinue her long-acting diltiazem and give her 60 mg every 8 hours to control the rate. We will continue Levemir and sliding scale insulin.
--- NOTE | 2016-09-28 13:24 | Cons- Cardiology ---
General Information and HPI Consulting Request Date of Consult: 09/28/16 Requested By: ELISE RAMIREZ MD Reason for Consult: Shortness of breath. History of Present Illness: Mrs. Gema Eugene is an 80-year-old female with a history of rheumatoid arthritis with recent flare up requiring tapering steroids, hypothyroidism, hypertension, diabetes mellitus, atrial fibrillation on Xarelto (Rivaroxaban) s/p failed cardioversion, and previous heart failure with last available echocardiograms ( TTE 07/19/2015; ALISHA 07/23/2015) that revealed a mild to moderate reduction in left ventricular systolic function (TTE EF 40-45%; ALISHA 35-40%), left atrial enlargement, mild to moderate mitral regurgitation, moderate tricuspid regurgitation, and mild to moderate pulmonary hypertension who presented to the ED with a 3-4 day complaint of worsening minimally productive cough, shortness of breath, orthopnea, weakness, fatigue, and fever. As a result of these complaints, she contacted her primary care physician (Alex Julio M.D.) who thought she might have a viral illness and suggested watchful waiting. Unfortunately, Mrs. Eugene continued to worsen and as a result her daughter brought her to the ED. At present she is without complaints, but does continue to cough. Allergies/Medications Allergies: Coded Allergies: NO KNOWN ALLERGIES (NONE) (09/06/10) Home Med List: Calcium Carbonate/Vitamin D3 (Calcium 500 + D Tablet) (Unknown Strength) TABLET (Unknown Dose) PO DAILY SUPPLEMENT (Reported) Clonazepam 0.5 MG TABLET 1 TAB PO QPM SLEEP (Reported) Diltiazem HCl (Cartia Xt) 120 MG CAP.ER.24H 1 CAP PO DAILY HEART/BP (Reported ) Duloxetine HCl 60 MG CAPSULE.DR 1 CAP PO DAILY NERVE PAIN (Reported) Esomeprazole (Nexium) 40 MG CAPSULE.DR 1 CAP PO DAILY GI (Reported) Furosemide 40 MG TABLET 1 TAB PO DAILY DIURETIC (Reported) Hydroxychloroquine Sulfate 200 MG TABLET 1 TAB PO DAILY RA (Reported) Insulin Degludec (Tresiba Flextouch U-200) 200 UNIT/ML (3 ML) INSULN.PEN 40 UNITS SC DAILY DM (Reported) Levothyroxine Sodium 50 MCG TABLET 1 TAB PO DAILY THYROID (Reported) Metoprolol Succinate 25 MG TAB 0.5 TAB PO DAILY HEART/BP (Reported) Mv,Min #10/FA/D3/Alip Acid/Lut (Strovite One Caplet) 1 MG-1,000 UNIT-15 MG-5 MG TABLET 1 TAB PO DAILY SUPPLEMENT (Reported) Prednisone 2.5 MG TABLET 1 TAB PO DAILY RA (Reported) Rivaroxaban (Xarelto) 20 MG TABLET 1 TAB PO DAILY BLOOD THINNER (Reported) with food Valsartan 160 MG TABLET 1 TAB PO DAILY BP (Reported) Review of Systems Review of Systems: A 14 point system review was obtained and was noncontributory, other than as above. Past History Travel History Traveled to [place] past 21 day No Medical History Blood Transfusion Hx: No Neurological: NONE EENT: NONE Cardiovascular: AFIB, CHF, diastolic CHF, hypertension, hyperlipidemia Respiratory: NONE Gastrointestinal: NONE Hepatic: NONE Renal: NONE Musculoskeletal: NONE Psychiatric: NONE Endocrine: diabetes, hypothyroidism, obesity Blood Disorders: NONE Cancer(s): NONE MORTGAGE LENDER/Reproductive: NONE Surgical History Surgical History: non-contributory Family History Relations & Conditions If Any: FATHER, . MOTHER (Had a history of diabetes). . Psychosocial History Where Do You Live? Home Services at Home: None Smoking Status: Never Smoked ETOH Use: denies use Illicit Drug Use: denies illicit drug use Functional Ability ADLs Independent: dressing, eating, toileting, bathing. Ambulation: independent IADLs Independent: shopping, housework, finances, food prep, telephone, transportation , medication admin. Exam & Diagnostic Data Vital Signs and I&O Vital Signs Date Time Temp Pulse Resp B/P B/P Pulse O2 O2 Flow FiO2 Mean Ox Delivery Rate 09/28 1211 98 Room Air Room Air 09/28 0935 96 Room Air 09/28 0918 115 146/84 09/28 0916 115 146/84 09/28 0800 Room Air 09/28 0758 99.0 115 18 146/84 93 Room Air 09/28 0330 92 152/88 09/28 0028 99.3 99 16 180/104 95 Room Air 09/28 0023 Room Air 09/27 2324 98.6 99 20 169/103 09/27 2319 98.6 99 20 169/103 96 Room Air 09/27 2154 98.7 108 20 182/86 96 Room Air 09/27 1931 98.2 114 20 187/89 94 Room Air 09/27 1908 96 Room Air 09/27 1832 96 09/27 1734 98.1 114 21 178/110 95 Room Air Intake & Output 09/28 1600 09/28 0800 09/28 0000 09/27 1600 09/27 0800 09/27 0000 Intake Total 240 1000 Output Total 650 Balance -410 1000 Intake, IV 1000 Intake, Oral 240 Output, Urine 650 Patient 210 lb 210 lb Weight Weight Reported by Patient Measurement Method Physical Exam: Well-developed, overweight elderly female in no acute distress with nasal oxygen in place. Vital signs: See above. Neck: No JVD, no bruits. Lungs: Bilateral rhonchi and basilar crackles. Heart: S1, S2 with grade 1-2/6 systolic murmur. PMI fifth ICS at MCL. No gallop or rub appreciated. Abdomen: Soft, nontender, positive bowel sounds. Extremities: No edema. Labs/Bry Results: Laboratory Tests 09/28 09/28 09/28 0640 0120 0035 Chemistry Troponin I (< 0.11 ng/ml) 0.02 Cancelled 0.02 09/27 09/27 1851 1850 Urines Urinalysis LIGHT H Urine Color (YEL,AMB,STR) YEL Urine Clarity (CLEAR) CLEAR Urine pH (5.0 - 8.0) 6.5 Ur Specific [place] (1.001 - 1.035) 1.015 Urine Protein (NEG,<30 MG/DL) 100 H Urine Ketones (NEG) NEG Urine Nitrite (NEG) NEG Urine Bilirubin (NEG) NEG Urine Urobilinogen (0.1 - 1.0 EU/dl) 0.2 Ur Leukocyte Esterase (NEG) NEG Ur Microscopic SEDIMENT EXAMINED Urine RBC (0 - 5 /HPF) 5-10 H Urine WBC (0 - 2 /HPF) 25-50 H Ur Epithelial Cells (NONE,FEW) FEW Urine Mucus (FEW,NONE) RARE Urine Hemoglobin (NEG) SMALL H Urine Osmolality (300 - 1000 MOSM/KG) 676 Ur Random Creatinine (mg/dL) 36.8 Ur Random Sodium (30 - 90 mmol/L) 12 L Ur Random Potassium (mmol/L) 19.1 Fraction Sodium Excret (<1% %) 0.2 Urine Glucose (N MG/DL) >=1000 H 09/27 1820 Chemistry Sodium (137 - 145 mmol/L) 125 L Potassium (3.5 - 5.1 mmol/L) 4.0 Chloride (98 - 107 mmol/L) 93 L Carbon Dioxide (22 - 30 mmol/L) 26 Anion Gap (5 - 16) 6 BUN (7 - 17 mg/dL) 17 Creatinine (0.5 - 1.0 mg/dL) 0.6 Estimated GFR (>60 ml/min) > 60 BUN/Creatinine Ratio (7 - 25 %) 28.3 H Glucose (65 - 99 mg/dL) 486 H Serum Osmolality (285 - 295 MOSM/KG) 289 Calcium (8.4 - 10.2 mg/dL) 8.3 L Magnesium (1.6 - 2.3 mg/dL) 1.8 Total Bilirubin (0.2 - 1.3 mg/dL) 0.6 AST (14 - 36 U/L) 28 ALT (9 - 52 U/L) 52 Alkaline Phosphatase (<127 U/L) 167 H Troponin I (< 0.11 ng/ml) 0.01 Psl-[id number]-Hmzzsbgvpvz Pept (<125 pg/mL) 2410 H Total Protein (6.3 - 8.2 g/dL) 6.8 Albumin (3.5 - 5.0 g/dL) 3.4 L Globulin (1.9 - 4.2 gm/dL) 3.4 Albumin/Globulin Ratio (1.1 - 2.2 %) 1.0 L TSH (0.270 - 4.200 uIU/mL) 1.590 Free T4 (0.85 - 1.93 ng/dL) 1.17 Cortisol PM Sample (1.7 - 14.1) 26.4 H Hematology CBC w Diff NO MAN DIFF REQ WBC (4.8 - 10.8 /CUMM) 10.5 RBC (4.20 - 5.40 /CUMM) 4.64 Hgb (12.0 - 16.0 G/DL) 13.8 Hct (37 - 47 %) 41.6 MCV (81.0 - 99.0 FL) 89.8 MCH (27.0 - 31.0 PG) 29.7 RDW (11.5 - 14.5 %) 14.6 H Plt Count (130 - 400 /CUMM) 214 MPV (7.4 - 10.4 FL) 10.4 Gran % (42.2 - 75.2 %) 86.6 H Lymphocytes % (20.5 - 51.1 %) 6.2 L Monocytes % (1.7 - 9.3 %) 6.5 Eosinophils % (0 - 5 %) 0.6 Basophils % (0.0 - 2.0 %) 0.1 Absolute Granulocytes (1.4 - 6.5 /CUMM) 9.1 H Absolute Lymphocytes (1.2 - 3.4 /CUMM) 0.7 L Absolute Monocytes (0.10 - 0.60 /CUMM) 0.7 H Absolute Eosinophils (0.0 - 0.7 /CUMM) 0.1 Absolute Basophils (0.0 - 0.2 /CUMM) 0 PUBS MCHC (33.0 - 37.0 G/DL) 33.1 Toxicology Acetone Level (NEGATIVE) NEGATIVE Diagnostic Data EKG Results (09/28/2016) atrial fibrillation, small inferior Q waves and nonspecific repolarization abnormalities in diffuse leads. Slower rate when compared to previous tracing from 09/27/2016. CXR Results (09/27/2016): No plain radiographic evidence of pneumonia. No acute pulmonary process. Stable cardiomegaly. Assessment/Plan Assessment/Plan 80-y-o-f w/ hx RA with recent flare and steroids, hypothyroidism, HTN, DM, chronic AF, and previous HF (HFrEF) with last echos (07/19/2015; 07/23/2015) that revealed a mild to moderate reduction in left ventricular systolic function (EF 35-45%), left atrial enlargement, mild to moderate mitral regurgitation, moderate tricuspid regurgitation, and mild to moderate pulmonary hypertension who presented to the ED with a 3-4 day complaint of worsening minimally productive cough, SOB, orthopnea, weakness, fatigue, and fever with hyponatremia and elevated NT-PRO BNP (2410 pg/ml), but without overt pulmonary edema observed on CXR. She is on an outpatient dosage of furosemide 40 mg daily that she increases to 60 mg daily as needed. It appears as though she received IV furosemide 20 mg 1 in the ED along with 1 L of normal saline for hyponatremia. It is not clear how accurate her inputs/outputs have been thus far. It is possible that the recent use of steroids may have led to an increased susceptibility to infection, worsening hypertension, and ultimately heart failure. It is also possible that her hyponatremia is on the basis of heart failure which could naturally be exacerbated by too much volume. Recommendations: * Telemetry admission, follow-up troponins, follow-up electrocardiograms. * Strict inputs/outputs and daily weights. * Repeat CXR and if there is now evidence of vascular congestion would cut back on IV fluid and give IV furosemide 40 mg with close follow-up of BUN/creatinine, sodium, potassium, magnesium, etc. * Repeat CXR in a.m. assuming a good diuresis. * Repeat echocardiogram to reassess her left ventricular systolic function, degree of left ventricular hypertrophy, mitral regurgitation, tricuspid regurgitation, estimated PA pressure, etc. * Continue the rest of her cardiac regimen (angiotension receptor joe, beta joe, factor X a inhibitor, etc.). * DVT prophylaxis being addressed by her anticoagulation for chronic atrial fibrillation. Further recommendations will follow, Thank you. Consult Acknowledgment - Thank you for your consult request.
[2016-09-28 16:20] VITALS: BP 132/78
--- NOTE | 2016-09-28 19:11 | RADIOLOGY REPORT ---
EXAMINATION: XR PORTABLE CHEST CLINICAL INFORMATION: Shortness of breath COMPARISON: 09/27/2016 TECHNIQUE: Portable AP view of the chest was obtained. FINDINGS: The cardiac silhouette remains enlarged. The patient is rotated to the left limiting the evaluation. The lungs are clear aside from bibasilar areas of atelectasis. There is no pleural effusion. Visualized osseous structures are stable. IMPRESSION: Mild to moderate cardiomegaly. No superimposed acute process.
[2016-09-29 00:10] VITALS: BP 122/84
--- NOTE | 2016-09-29 07:29 | PN- Housestaff ---
Subjective Follow-up For: #Acute bronchitis History CHF, Afib, HTN Hyperglycemia Hyponatremia Rheumatoid arthritis Hypothyroidism Tele-Events Since Last Visit: A. fib, heart rate 77-94, no overnight events. Subjective: Afebrile, WBCs within normal, hemodynamically stable, no acute overnight events reported. Patient had multiple nonproductive coughs during physical exam. Patient denies chest pain or palpitation. She is saturating well on room air. Review of Systems Constitutional: Reports: see HPI. Objective Last 24 Hrs of Vital Signs/I&O Vital Signs Date Time Temp Pulse Resp B/P B/P Pulse O2 O2 Flow FiO2 Mean Ox Delivery Rate 09/29 0941 78 125/59 09/29 0940 78 125/59 09/29 0853 99.9 78 16 125/59 96 Room Air 09/29 0833 96 Room Air 09/29 0800 Room Air 09/29 0604 100 126/82 09/29 0010 99.0 70 20 122/84 94 Room Air 09/29 0000 93 Room Air 09/28 2145 88 132/78 09/28 1940 96 Room Air 09/28 1620 98.9 82 20 132/78 98 Room Air 09/28 1549 110 132/78 09/28 1211 98 Room Air Room Air Intake & Output 09/29 1600 09/29 0800 09/29 0000 Intake Total 340 1145 Output Total 1150 450 Balance -810 695 Intake, IV 525 Intake, Oral 340 620 Output, Urine 1150 450 Physical Exam General Appearance: Alert, Oriented X3, Cooperative, No Acute Distress HEENT: Atraumatic, PERRLA, EOMI, Mucous Membr. moist/pink Cardiovascular: Normal S1, Normal S2, No Murmurs, irregular Lungs: diminished air-entry over lung b/l, scattered wheezing over lung b/l Abdomen: Normal Bowel Sounds, Soft, No Tenderness Neurological: Normal Speech Extremities: No Clubbing, No Cyanosis, No Edema Current Medications: Current Medications Sig/Jackson Start time Last Medication Dose Route Stop Time Status Admin Acetaminophen 325 MG Q6P PRN 09/28 1200 AC 09/29 PO 1000 Acetaminophen 650 MG Q6P PRN 09/27 2144 DC PO Acetaminophen 1,000 MG Q6P PRN 09/27 2144 AC IV Albuterol Sulfate 3 ML BID 09/28 1000 AC 09/29 INH 0817 Azithromycin 500 MG DAILY 09/29 1000 AC 09/29 Sodium Chloride 250 ML IV 1142 Benzocaine/Menthol 1 TALIA Q2P PRN 09/28 1600 AC 09/29 PO 1000 Calcium/Vitamin D 500 MG DAILY 09/28 1000 AC 09/29 PO 0940 Ceftriaxone Sodium 1,000 MG DAILY 09/29 1000 AC 09/29 IV 0945 Clonazepam 0.5 MG QPM 09/28 0100 AC 09/28 PO 10/05 0057 2145 Diltiazem HCl 30 MG ONCE ONE 09/28 1530 CAN PO 09/28 1531 Diltiazem HCl 60 MG Q8 09/28 1400 AC 09/29 PO 0604 Diltiazem HCl 120 MG DAILY 09/28 1000 DC 09/28 PO 0918 Docusate Sodium 100 MG DAILY NEEDED PRN 09/28 1900 AC 09/29 PO 1000 Duloxetine HCl 60 MG DAILY 09/28 1000 AC 09/29 PO 0940 Furosemide 40 MG DAILY 09/29 1000 AC PO Furosemide 40 MG DAILY 09/29 0601 DC 09/29 IV 0604 Guaifenesin 600 MG Q12 09/28 1156 AC 09/29 PO 0940 Guaifenesin 10 ML Q4P PRN 09/28 0330 AC 09/28 PO 2157 Insulin Aspart 0 TIDAC 09/28 0800 AC 09/28 SC 1847 Insulin Detemir 16 UNITS BID 09/28 1000 AC 09/29 SC 0959 Levothyroxine Sodium 0.05 MG DAILY AC 09/28 0700 AC 09/29 PO 0604 Losartan Potassium 50 MG DAILY 09/28 1000 AC 09/29 PO 0940 Metoprolol Succinate 12.5 MG DAILY 09/28 0230 AC 09/29 PO 0941 Omeprazole 40 MG DAILY AC 09/28 0700 AC 09/29 PO 0604 Oxycodone HCl 10 MG Q6P PRN 09/27 2145 AC PO Potassium Chloride 40 MEQ ONCE ONE 09/29 1045 DC 09/29 PO 09/29 1046 1146 Rivaroxaban 20 MG 1700 09/28 1700 AC 09/28 PO 1846 Sodium Chloride 1,000 ML Q13H 09/28 1200 DC 09/28 IV 1221 Last 24 Hrs of Lab/Bry Results Last 24 Hrs of Labs/Mics: Laboratory Tests 09/29/16 0600: Anion Gap 9, Estimated GFR > 60, BUN/Creatinine Ratio 26.3 H Assessment/Plan Assessment: Patient is a 80 year-old lady with PMH of atrial fibrillation (on Xarelto), Rheumatoid arthritis on chronic steroids, diastolic CHF, HTN, HLD, DM, hypothyroidism, obesity, who is brought in to the ED after 2-3 days of persistent fever, cough, sore throat, congestion, wheezing and difficulty breathing. Problem list: #Acute bronchitis Wheezing and rhonchi diffuse and bilateral. CXR shows no evidence of pneumonia. No acute pulmonary process. WBCs within normal limits and no fever. * O2 supplementation as needed, to keep SO2>92% * TRC/Nebs [id number] * Guaifenesin to help with the cough * We will start azithromycin and ceftriaxone * We will consult flap lining binder History CHF, Afib, HTN Rate is currently in 90s-110s. Patient has history of CHF, last ECHO 07/23/15 ( [facility]) showed estimated LVEF of approximately 35-40%, with global hypokinesis. ProBNP elevated to 2410 from 1040. Has mild pedal edema and bibasilar crackles. * We will switch Lasix to oral * Pending echocardiogram * Continue Cardizem 60 mg every 6 hours * continue metoprolol succinate 12.5 mg daily * Continue losartan 50 mg daily * continue xarelto Hyperglycemia History of diabetes on Tresiba 40 units daily. * Novolog insulin SS * Levemir 16 units BID * Accuchecks TID/AC HS Hyponatremia Most likely pseudohyponatremia in the setting of elevated glucose, corrected Na was 131-134. serum osmolality and urine osmolality are within normal limits. there is glucosuria and decreased urinary sodium excretion. This morning sodium is 130 * will repeat BEP in am Rheumatoid arthritis Recently had increased shoulder pain for which she was put on prednisone, now tapered to 5 mg daily. * continue prednisone at 5 mg daily, home dose * hydroxychloroquine 200 mg daily on hold due to possible worsening bronchospasm on hydroxychloroquine Hypothyroidism * continue levothyroxine Will continue duloxetine and clonazepam for anxiety/depression Pain control with Tylenol, IV acetaminophen, Oxycodone DVT px with Xarelto CHF diet FC Problem List: 1. Hyperglycemia 2. Hyponatremia 3. Persistent cough 4. Diabetes 5. Atrial fibrillation Pain Ratin Pain Location: throat Pain Goal: Remain pain free Pain Plan: See A&P Tomorrow's Labs & Rationales: bep to f/u Na
--- NOTE | 2016-09-29 08:45 | NUR ---
BEDSIDE ROUNDS WITH LOKIE ENGINEER, ATTENDING AND THIS NURSE WITH PATIENT AND DAUGHTER PRESENT. REPORTED POTASSIUM LEVEL OF 3.9, SODIUM 131. IVF TO BE DISCONTINUED. START ON IV ANTIBIOTICS FOR BRONCHITIS. WILL CONTINUE TO MONITOR.
[2016-09-29 08:53] VITALS: BP 125/59
--- NOTE | 2016-09-29 09:44 | Admission Certification ---
Admission Certification Certification Statement - As attending physician, I certify that at the time of - admission, based on clinical presentation, severity of - symptoms, need for further diagnostic testing and - therapeutic interventions, and risk of adverse outcomes - without in-hospital treatment, in my clinical assessment, - this patient requires an acute hospital stay for a minimum - of two nights or longer. I have also considered psychsocial - factors such as support system, advanced age, financial - issues, cognitive issues, and failed out-patient treatments, - past re-admission history, safety of patient, and lack of - compliance as applicable. Specific rationale supporting this admission is: bronchitis
--- NOTE | 2016-09-29 09:48 | PN- Att Addend ---
Attending Addendum Attending Brief Note Patient reports improved breathing symptoms however she continues to have nonproductive cough General Appearance: Alert, No Acute Distress Neck: Supple, No JVD Cardiovascular: Regular Rate, Normal S1, Normal S2, No Murmurs Lungs: generalized coarse lung sounds Abdomen: Normal Bowel Sounds, Soft, No Tenderness Neurological: Normal Speech, Strength at 5/5 X4 Ext, Cranial Nerves 3-12 NL, Reflexes 2+ Extremities: Trace edema Vascular: Normal Pulses Assessment It appears clinically she has severe bronchitis giving rise to her respiratory symptoms. She does not appear to be in heart failure. Patient had a similar presentation about a year ago at that point sputum grew mold in her chest x-ray has been negative. On presentation she had mild fever and also a left shift. We'll treat her with antibiotics and get a pulmonary consult. According to patient's daughter she had an allergic reaction to high-dose prednisone given to her in the ER. Will defer the need for steroids to pulmonary. Plan Start ceftriaxone and azithromycin Pulmonary consult Induce send sputum for culture Change to oral Lasix Discontinue IV fluids TRC and nebs continue other home medications DVT prophylaxis Current Medications Sig/Jackson Start time Last Medication Dose Route Stop Time Status Admin Acetaminophen 325 MG Q6P PRN 09/28 1200 AC PO Acetaminophen 650 MG Q6P PRN 09/27 2145 DC PO Acetaminophen 1,000 MG Q6P PRN 09/27 2145 AC IV Albuterol Sulfate 3 ML BID 09/28 1000 AC 09/29 INH 0817 Azithromycin 500 MG DAILY 09/29 1000 AC Sodium Chloride 250 ML IV Benzocaine/Menthol 1 TALIA Q2P PRN 09/28 1600 AC PO Calcium/Vitamin D 500 MG DAILY 09/28 1000 AC 09/29 PO 0940 Ceftriaxone Sodium 1,000 MG DAILY 09/29 1000 AC 09/29 IV 0945 Clonazepam 0.5 MG QPM 09/28 0100 AC 09/28 PO 10/05 0057 2145 Diltiazem HCl 30 MG ONCE ONE 09/28 1530 CAN PO 09/28 1531 Diltiazem HCl 60 MG Q8 09/28 1400 AC 09/29 PO 0604 Diltiazem HCl 120 MG DAILY 09/28 1000 DC 09/28 PO 0918 Docusate Sodium 100 MG DAILY NEEDED PRN 09/28 1900 AC PO Duloxetine HCl 60 MG DAILY 09/28 1000 AC 09/29 PO 0940 Furosemide 40 MG DAILY 09/29 1000 AC PO Furosemide 40 MG DAILY 09/29 0601 DC 09/29 IV 0604 Guaifenesin 600 MG Q12 09/28 1156 AC 09/29 PO 0940 Guaifenesin 10 ML Q4P PRN 09/28 0330 AC 09/28 PO 2157 Insulin Aspart 0 TIDAC 09/28 0800 AC 09/28 SC 1847 Insulin Detemir 16 UNITS BID 09/28 1000 AC 09/28 SC 2144 Levothyroxine Sodium 0.05 MG DAILY AC 09/28 0700 AC 09/29 PO 0604 Losartan Potassium 50 MG DAILY 09/28 1000 AC 09/29 PO 0940 Metoprolol Succinate 12.5 MG DAILY 09/28 0230 AC 09/29 PO 0941 Omeprazole 40 MG DAILY AC 09/28 0700 AC 09/29 PO 0604 Oxycodone HCl 10 MG Q6P PRN 09/27 2145 AC PO Rivaroxaban 20 MG 1700 09/28 1700 AC 09/28 PO 1846 Sodium Chloride 1,000 ML Q13H 09/28 1200 DC 09/28 IV 1221 Laboratory Tests 09/29 0600 Chemistry Sodium (137 - 145 mmol/L) 131 L Potassium (3.5 - 5.1 mmol/L) 3.9 Chloride (98 - 107 mmol/L) 95 L Carbon Dioxide (22 - 30 mmol/L) 27 Anion Gap (5 - 16) 9 BUN (7 - 17 mg/dL) 21 H Creatinine (0.5 - 1.0 mg/dL) 0.8 Estimated GFR (>60 ml/min) > 60 BUN/Creatinine Ratio (7 - 25 %) 26.3 H Vital Signs Date Time Temp Pulse Resp B/P B/P Pulse O2 O2 Flow FiO2 Mean Ox Delivery Rate 09/29 0941 78 125/59 09/29 0940 78 125/59 09/29 0853 99.9 78 16 125/59 96 Room Air 09/29 0833 96 Room Air 09/29 0604 100 126/82 09/29 0010 99.0 70 20 122/84 94 Room Air 09/29 0000 93 Room Air 09/28 2145 88 132/78 09/28 1940 96 Room Air 09/28 1620 98.9 82 20 132/78 98 Room Air 09/28 1549 110 132/78 09/28 1211 98 Room Air Room Air
--- NOTE | 2016-09-29 12:00 | PN- Cardiology ---
Subjective Subjective: The patient is awake, alert Continues to feel dyspnea as well as cough The events of the last 24 hours as well as telemetry were reviewed. Review of Systems: The review of systems is negative for chest pains, palpitations nor lightheadedness. The remainder of the 14 point review of systems is noncontributory with the exception of above. Objective Vital Signs and I&Os Vital Signs Date Time Temp Pulse Resp B/P B/P Pulse O2 O2 Flow FiO2 Mean Ox Delivery Rate 09/29 0941 78 125/59 09/29 0940 78 125/59 09/29 0853 99.9 78 16 125/59 96 Room Air 09/29 0833 96 Room Air 09/29 0800 Room Air 09/29 0604 100 126/82 09/29 0010 99.0 70 20 122/84 94 Room Air 09/29 0000 93 Room Air 09/28 2145 88 132/78 09/28 1940 96 Room Air 09/28 1620 98.9 82 20 132/78 98 Room Air 09/28 1549 110 132/78 09/28 1211 98 Room Air Room Air Intake & Output 09/29 1600 09/29 0800 09/29 0000 09/28 1600 09/28 0800 09/28 0000 Intake Total 340 1145 967.5 240 1000 Output Total 1150 450 500 650 Balance -810 695 467.5 -410 1000 Intake, IV 525 187.5 1000 Intake, Oral 340 620 780 240 Output, Urine 1150 450 500 650 Patient 210 lb 210 lb Weight Weight Reported by Patient Measurement Method Physical Exam: General: Nontoxic, no apparent distress. HEENT: Sclera and conjunctiva within normal limits, without xanthelasmas. Neck: Carotids 2+ without bruits. Respiratory: Diffuse rhonchi and rales, air movement is decreased at bases, scattered wheezing, without accessory respiratory muscle use. Heart: Irregularly irregular rate and rhythm, 2-6 systolic ejection murmur at left sternal border, without JVD. Abdomen: Soft, nontender, no masses, normoactive bowel sounds. Extremities: Without clubbing, cyanosis, without edema. Neuro: Nonfocal exam, strength, 5 out of 5 Skin: Within normal limits without lesions. Psych: Mood and affect: Normal Current Medications: Current Medications Sig/Jackson Start time Last Medication Dose Route Stop Time Status Admin Acetaminophen 325 MG Q6P PRN 09/28 1200 AC 09/29 PO 1000 Acetaminophen 650 MG Q6P PRN 09/27 2145 DC PO Acetaminophen 1,000 MG Q6P PRN 09/27 2145 AC IV Albuterol Sulfate 3 ML BID 09/28 1000 AC 09/29 INH 0817 Azithromycin 500 MG DAILY 09/29 1000 AC 09/29 Sodium Chloride 250 ML IV 1142 Benzocaine/Menthol 1 TALIA Q2P PRN 09/28 1600 AC 09/29 PO 1000 Calcium/Vitamin D 500 MG DAILY 09/28 1000 AC 09/29 PO 0940 Ceftriaxone Sodium 1,000 MG DAILY 09/29 1000 AC 09/29 IV 0945 Clonazepam 0.5 MG QPM 09/28 0100 AC 09/28 PO 10/05 0057 2145 Diltiazem HCl 30 MG ONCE ONE 09/28 1530 CAN PO 09/28 1531 Diltiazem HCl 60 MG Q8 09/28 1400 AC 09/29 PO 0604 Diltiazem HCl 120 MG DAILY 09/28 1000 DC 09/28 PO 0918 Docusate Sodium 100 MG DAILY NEEDED PRN 09/28 1900 AC 09/29 PO 1000 Duloxetine HCl 60 MG DAILY 09/28 1000 AC 09/29 PO 0940 Furosemide 40 MG DAILY 09/29 1000 AC PO Furosemide 40 MG DAILY 09/29 0601 DC 09/29 IV 0604 Guaifenesin 600 MG Q12 09/28 1156 AC 09/29 PO 0940 Guaifenesin 10 ML Q4P PRN 09/28 0330 AC 09/28 PO 2157 Insulin Aspart 0 TIDAC 09/28 0800 AC 09/28 SC 1847 Insulin Detemir 16 UNITS BID 09/28 1000 AC 09/29 SC 0959 Levothyroxine Sodium 0.05 MG DAILY AC 09/28 0700 AC 09/29 PO 0604 Losartan Potassium 50 MG DAILY 09/28 1000 AC 09/29 PO 0940 Metoprolol Succinate 12.5 MG DAILY 09/28 0230 AC 09/29 PO 0941 Omeprazole 40 MG DAILY AC 09/28 0700 AC 09/29 PO 0604 Oxycodone HCl 10 MG Q6P PRN 09/27 2145 AC PO Potassium Chloride 40 MEQ ONCE ONE 09/29 1045 DC 09/29 PO 09/29 1046 1146 Rivaroxaban 20 MG 1700 09/28 1700 AC 09/28 PO 1846 Sodium Chloride 1,000 ML Q13H 09/28 1200 DC 09/28 IV 1221 Results Last 48 Hrs of Labs/Mics: Laboratory Tests 09/29/16 0600: Anion Gap 9, Estimated GFR > 60, BUN/Creatinine Ratio 26.3 H 09/28/16 0640: Troponin I 0.02 09/28/16 0120: Troponin I Cancelled 09/28/16 0035: Troponin I 0.02 09/27/16 1851: Urinalysis LIGHT H, Urine Color YEL, Urine Clarity CLEAR, Urine pH 6.5, Ur Specific Lillian 1.015, Urine Protein 100 H, Urine Ketones NEG, Urine Nitrite NEG, Urine Bilirubin NEG, Urine Urobilinogen 0.2, Ur Leukocyte Esterase NEG, Ur Microscopic SEDIMENT EXAMINED, Urine RBC 5-10 H, Urine WBC 25-50 H, Ur Epithelial Cells FEW, Urine Mucus RARE, Urine Hemoglobin SMALL H, Urine Glucose >=1000 H 09/27/16 1850: Urine Osmolality 676, Ur Random Creatinine 36.8, Ur Random Sodium 12 L, Ur Random Potassium 19.1, Fraction Sodium Excret 0.2 09/27/16 1820: Anion Gap 6, Estimated GFR > 60, BUN/Creatinine Ratio 28.3 H, Glucose 486 H, Serum Osmolality 289, Calcium 8.3 L, Magnesium 1.8, Total Bilirubin 0.6, AST 28 , ALT 52, Alkaline Phosphatase 167 H, Troponin I 0.01, [id number] Pept 2410 H, Total Protein 6.8, Albumin 3.4 L, Globulin 3.4, Albumin/Globulin Ratio 1.0 L, TSH 1.590, Free T4 1.17, Cortisol PM Sample 26.4 H, CBC w Diff NO MAN DIFF REQ, RBC 4.64, MCV 89.8, MCH 29.7, RDW 14.6 H, MPV 10.4, Gran % 86.6 H, Lymphocytes % 6.2 L, Monocytes % 6.5, Eosinophils % 0.6, Basophils % 0.1, Absolute Granulocytes 9.1 H, Absolute Lymphocytes 0.7 L, Absolute Monocytes 0.7 H, Absolute Eosinophils 0.1, Absolute Basophils 0, PUBS MCHC 33.1, Acetone Level NEGATIVE Microbiology 09/27 1924 NASOPHARYN: Influenza Virus A & B Rapid Smear - COMP 09/27 1850 URINE ROUT: Urine Culture - COMP BETA STREP GROUP B Assessment/Plan Assessment/Plan [id number] w/ hx RA with recent flare and steroids, hypothyroidism, HTN, DM, chronic AF, and previous HF (HFrEF) with last echos (07/19/2015; 07/23/2015) that revealed a mild to moderate reduction in left ventricular systolic function (EF 35-45%), left atrial enlargement, mild to moderate mitral regurgitation, moderate tricuspid regurgitation, and mild to moderate pulmonary hypertension who presented to the ED with a 3-4 day complaint of worsening minimally productive cough, SOB, orthopnea, weakness, fatigue, and fever with hyponatremia and elevated NT-PRO BNP (2410 pg/ml) Dyspnea: Likely multifactorial including a potential URI with superimposed acute on chronic congestive heart failure secondary to a mixed systolic and diastolic dysfunction. There is evidence for gross fluid overload. The patient was given fluids in the ER due to hyponatremia; however, I suspect this is likely multifactorial as well. At this point, I would initiate fluid restriction and attempt mild diuresis with IV Lasix. We will follow her sodium closely. Hyponatremia: The patient has generalized metabolic derangements which include those from suboptimally controlled diabetes. Her hyponatremia should be corrected with fluid restriction. Atrial fibrillation: The heart rate control is suboptimal; however, likely is secondary to her underlying respiratory issues. I would continue her current medication regimen including full anticoagulation using Xarelto. Continue telemetry? Yes
[2016-09-29 13:56] VITALS: BP 146/80
[2016-09-29 16:06] VITALS: BP 138/72
--- NOTE | 2016-09-29 21:16 | Cons- Pulmonary ---
General Information and HPI Consulting Request Date of Consult: 09/29/16 Requested By: med team History of Present Illness: Mrs. Gema Eugene is an 80-year-old female with a history of rheumatoid arthritis with recent flare up requiring tapering steroids, hypothyroidism, hypertension, diabetes mellitus, atrial fibrillation on Xarelto (Rivaroxaban) s/p failed cardioversion, and previous heart failure with last available echocardiograms ( TTE 07/19/2015; ALISHA 07/23/2015) that revealed a mild to moderate reduction in left ventricular systolic function (TTE EF 40-45%; ALISHA 35-40%), left atrial enlargement, mild to moderate mitral regurgitation, moderate tricuspid regurgitation, and mild to moderate pulmonary hypertension who presented to the ED with a 3-4 day complaint of worsening minimally productive cough, shortness of breath, orthopnea, weakness, fatigue, and fever. At present she is without complaints, but does continue to cough. Since she came in she says she is slightly improved and has had intravenous Lasix and has improved significantly. She continues to cough. A chest x-ray was suggestive of cardiomegaly with mild evidence suggestive of heart failure. Significant data Sodium was low at 125 now increasing to 131 and a sugar was elevated her other blood work was reviewed as noted in the computer white count was elevated upon admission and she had significant granulocytosis. Her other blood work was reviewed. A previous radiological imaging did reveal that the she has significant cardiomegaly evidence suggestive of heart failure with right middle lobe chronic atelectasis as well. No ABGs noted Previous echocardiogram had revealed that she does have low ejection fraction. Allergies/Medications Allergies: Coded Allergies: NO KNOWN ALLERGIES (NONE) (09/06/10) Home Med List: Calcium Carbonate/Vitamin D3 (Calcium 500 + D Tablet) (Unknown Strength) TABLET (Unknown Dose) PO DAILY SUPPLEMENT (Reported) Clonazepam 0.5 MG TABLET 1 TAB PO QPM SLEEP (Reported) Diltiazem HCl (Cartia Xt) 120 MG CAP.ER.24H 1 CAP PO DAILY HEART/BP (Reported ) Duloxetine HCl 60 MG CAPSULE.DR 1 CAP PO DAILY NERVE PAIN (Reported) Esomeprazole (Nexium) 40 MG CAPSULE.DR 1 CAP PO DAILY GI (Reported) Furosemide 40 MG TABLET 1 TAB PO DAILY DIURETIC (Reported) Hydroxychloroquine Sulfate 200 MG TABLET 1 TAB PO DAILY RA (Reported) Insulin Degludec (Tresiba Flextouch U-200) 200 UNIT/ML (3 ML) INSULN.PEN 40 UNITS SC DAILY DM (Reported) Levothyroxine Sodium 50 MCG TABLET 1 TAB PO DAILY THYROID (Reported) Metoprolol Succinate 25 MG TAB 0.5 TAB PO DAILY HEART/BP (Reported) Mv,Min #10/FA/D3/Alip Acid/Lut (Strovite One Caplet) 1 MG-1,000 UNIT-15 MG-5 MG TABLET 1 TAB PO DAILY SUPPLEMENT (Reported) Prednisone 2.5 MG TABLET 1 TAB PO DAILY RA (Reported) Rivaroxaban (Xarelto) 20 MG TABLET 1 TAB PO DAILY BLOOD THINNER (Reported) with food Valsartan 160 MG TABLET 1 TAB PO DAILY BP (Reported) Past History Travel History Traveled to [place] past 21 day No Medical History Blood Transfusion Hx: No Neurological: NONE EENT: NONE Cardiovascular: AFIB, CHF, diastolic CHF, hypertension, hyperlipidemia Respiratory: NONE Gastrointestinal: NONE Hepatic: NONE Renal: NONE Musculoskeletal: NONE Psychiatric: NONE Endocrine: diabetes, hypothyroidism, obesity Blood Disorders: NONE Cancer(s): NONE 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 MOTHER (Had a history of diabetes). . Psychosocial History Where Do You Live? Home Services at Home: None Smoking Status: Never Smoked ETOH Use: denies use Illicit Drug Use: denies illicit drug use Functional Ability ADLs Independent: dressing, eating, toileting, bathing. Ambulation: independent IADLs Independent: shopping, housework, finances, food prep, telephone, transportation , medication admin. Exam & Diagnostic Data Last 24 Hrs of Vital Signs/I&O Vital Signs Date Time Temp Pulse Resp B/P B/P Pulse O2 O2 Flow FiO2 Mean Ox Delivery Rate 09/29 1900 98 Room Air 09/29 1606 98.1 82 22 138/72 96 Room Air 09/29 1600 Room Air 09/29 1356 98.1 80 22 146/80 96 Room Air 09/29 1355 80 146/80 09/29 0941 78 125/59 09/29 0940 78 125/59 09/29 0853 99.9 78 16 125/59 96 Room Air 09/29 0833 96 Room Air 09/29 0800 Room Air 09/29 0604 100 126/82 09/29 0010 99.0 70 20 122/84 94 Room Air 09/29 0000 93 Room Air 09/28 2145 88 132/78 Intake & Output 09/29 1600 09/29 0800 09/29 0000 Intake Total 110 319 6573 Output Total 400 1150 450 Balance 330 -810 695 Intake, IV 250 525 Intake, Oral 480 340 620 Output, Urine 400 1150 450 Laboratory Tests 09/29 09/28 09/28 09/28 0600 0640 0120 0035 Chemistry Sodium (137 - 145 mmol/L) 131 L Potassium (3.5 - 5.1 mmol/L) 3.9 Chloride (98 - 107 mmol/L) 95 L Carbon Dioxide (22 - 30 mmol/L) 27 Anion Gap (5 - 16) 9 BUN (7 - 17 mg/dL) 21 H Creatinine (0.5 - 1.0 mg/dL) 0.8 Estimated GFR (>60 ml/min) > 60 BUN/Creatinine Ratio (7 - 25 %) 26.3 H Troponin I (< 0.11 ng/ml) 0.02 Cancelled 0.02 Microbiology Date/Time Procedure - Status Source Growth 09/27 192 Influenza Virus A & B Rapid Smear - COMP NASOPHARYN 09/27 185 Urine Culture - COMP URINE ROUT BETA STREP GROUP B 09/27 183 Blood Culture - RES BLOOD 09/27 182 Blood Culture - RES BLOOD Last 48 Hrs of Labs/Bry: Laboratory Tests 09/29/16 0600: Anion Gap 9, Estimated GFR > 60, BUN/Creatinine Ratio 26.3 H 09/28/16 0640: Troponin I 0.02 09/28/16 0120: Troponin I Cancelled 09/28/16 0035: Troponin I 0.02 Assessment/Plan Impression/Plan: Physical Exam: General: Nontoxic, no apparent distress. HEENT: Sclera and conjunctiva within normal limits, without xanthelasmas. Neck: Carotids 2+ without bruits. Respiratory: Diffuse rhonchi and rales, air movement is decreased at bases, scattered wheezing, without accessory respiratory muscle use. Heart: Irregularly irregular rate and rhythm, 2-6 systolic ejection murmur at left sternal border, without JVD. Abdomen: Soft, nontender, no masses, normoactive bowel sounds. Extremities: Without clubbing, cyanosis, without edema. Neuro: Nonfocal exam, strength, 5 out of 5 Skin: Within normal limits without lesions. Psych: Mood and affect: Normal IMPRESSION This is a lady with history of rheumatoid arthritis, chronic right middle lobe atelectasis with mild bronchiectasis, chronic steroid use for rheumatoid arthritis, hypothyroidism on appropriate supplementation, hypertension, diabetes , atrial fibrillation which appears chronic, significantly reduced systolic heart function with last ejection fraction noted to be 35-45%, moderate mitral regurg and tricuspid regurg, moderate pulmonary hypertension comes into the hospital with increasing cough wheezing and fatigue with hyponatremia with elevated proBNP. Issues include * Acute on chronic congestive heart failure with low ejection fraction with both mixed systolic and diastolic dysfunction with gross body fluid overload now improving slowly with diuresis * Bronchitis most likely related to heart failure versus viral bronchitis now oxygenating well with no clear evidence suggestive of acute bacterial pyogenic infection * Chronic hyponatremia most likely related to fluid overload with SIADH * Atrial fibrillation * Rheumatoid arthritis with chronic steroid use hence immunosuppressed * Right middle lobe atelectasis with mild bronchiectasis with no previous history of Pseudomonas infection * Previous mold in her sputum prob was a contaminant * Previous negative RAST test REC Continue aggressive diuresis When necessary nebulizer Watch sodium Continue rate control medication anticoagulation 40 mg of prednisone daily if she continues to wheeze Change antibiotic to by mouth cefuroxime tomorrow after 3 days of as it though that can also be stopped Start Symbicort 2 puffs twice a day We will follow closely Consult Acknowledgment - Thank you for your consult request.
[2016-09-30 00:31] VITALS: BP 126/66
--- NOTE | 2016-09-30 08:04 | ECHOCARDIOGRAM REPORT ---
NICOLE MACHUCA Age: 80 : 1935 Gender: F Exam Date: 09/29/2016 16:34 Exam Location: [facility] Ht (in): 65 Wt (lb): 210 BSA: 2.13 BP: 138 / 72 Ordering Physician: MIKIE HARRIS MD Referring Physician: Nain Wilson M.D. Technologist: Tricia Mclain [facility] Room Number: 180-02 Indications: LV FUNCTION AFTER ACS Rhythm: Technical Quality: poor endocardial definition FINDINGS Left Ventricle Normal size left ventricle. Left ventricular wall thickness mildly increased. Mildly abnormal left ventricular ejection fraction estimated at 40-45%. Right Ventricle Normal right ventricular size and function. Right Atrium Normal right atrial size. Left Atrium Left atrial size at the upper limits of normal. Mitral Valve Mild mitral annular calcification. [id number] mitral regurgitation. Aortic Valve Diffuse thickening (sclerosis) of the aortic valve cusps without reduced excursion. Tricuspid Valve Structurally normal tricuspid valve. Moderate tricuspid regurgitation. Right ventricular systolic pressure estimated to be elevated at 45 mmHg. Pulmonic Valve Pulmonic valve not well visualized, grossly normal. Pericardium No pericardial effusion. Great Vessels Normal size aortic root. CONCLUSIONS Poor Echo window. Mild to moderate reduction in left ventricular systolic function. Mild to moderate Pulmonary hypertension.Moderate mitral and Tricuspid Regurgitation. Isma Castaneda M.D. (Electronically Signed) Final Date: 30 Sep 2016 08:03 MEASUREMENTS (Male / Female) Normal Values 2D ECHO LV Diastolic Diameter PLAX 5.1 cm 4.2 - 5.9 / 3.9 - 5.3 cm LV Systolic Diameter PLAX 4.3 cm 2.1 - 4.0 cm LV Fractional Shortening PLAX 15.7 % 25 - 46 % LV Ejection Fraction 2D Teich 32.9 % IVS Diastolic Thickness 1.2 cm LVPW Diastolic Thickness 1.0 cm LV Relative Wall Thickness 0.4 RV Internal Dim ED PLAX 2.5 cm 1.9 - 3.8 cm LVOT Diameter 1.9 cm Aortic Root Diameter 2.9 cm LA Systolic Diameter LX 3.6 cm 3.0 - 4.0 / 2.7 - 3.8 cm LA Volume 38.0 cm 18 - 58 / 22 - 52 cm Ascending Aorta Diameter 3.2 cm DOPPLER AV Peak Velocity 156.0 cm/s AV Peak Gradient 9.7 mmHg AV Mean Velocity 115.0 cm/s AV Mean Gradient 6.0 mmHg AV Velocity Time Integral 35.6 cm LVOT Peak Velocity 72.2 cm/s LVOT Peak Gradient 2.1 mmHg LVOT Mean Velocity 52.1 cm/s LVOT Mean Gradient 1.0 mmHg LVOT Velocity Time Integral 12.6 cm LVOT Stroke Volume 35.7 cm AV Area Cont Eq vti 1.0 cm AV Area Cont Eq pk 1.3 cm MV Peak Velocity 112.0 cm/s MV Peak Gradient 5.0 mmHg MV Mean Velocity 56.2 cm/s MV Mean Gradient 2.0 mmHg Mitral E Point Velocity 105.0 cm/s MV PHT Velocity 117.0 cm/s MV Deceleration [place] 362.0 cm/s MV Pressure Half Time 97.0 ms MV Area PHT 2.3 cm MV Deceleration Time 173.0 ms TR Peak Velocity 282.0 cm/s TR Peak Gradient 31.8 mmHg Right Atrial Pressure 10.0 mmHg Pulmonary Artery Systolic Pressu 41.8 mmHg Right Ventricular Systolic Press 41.8 mmHg PV Peak Velocity 66.1 cm/s PV Peak Gradient 1.7 mmHg PV Mean Velocity 47.7 cm/s PV Mean Gradient 1.0 mmHg PV Velocity Time Integral 12.7 cm LV E' Lateral Velocity 9.5 cm/s Mitral E to LV E' Lateral Ratio 11.1 LV E' Septal Velocity 6.1 cm/s Mitral E to LV E' Septal Ratio 17.1
[2016-09-30 08:07] VITALS: BP 118/82
--- NOTE | 2016-09-30 08:43 | PN- Housestaff ---
Subjective Follow-up For: #Acute bronchitis History CHF, Afib, HTN Hyperglycemia Hyponatremia Rheumatoid arthritis Hypothyroidism Tele-Events Since Last Visit: Jonna garcia, heartrate 67-101, no overnight events Subjective: Afebrile, hemodynamically stable, no acute overnight events reported. Patient reported worsening of her cough that became more productive this morning but denies chest pain or palpitation. She is saturating well on room air. Review of Systems Constitutional: Reports: see HPI. Objective Last 24 Hrs of Vital Signs/I&O Vital Signs Date Time Temp Pulse Resp B/P B/P Pulse O2 O2 Flow FiO2 Mean Ox Delivery Rate 09/30 0901 119 118/82 09/30 0900 119 118/82 09/30 0807 98.7 119 20 118/82 97 Room Air 09/30 0800 98 Room Air 09/30 0626 89 140/86 09/30 0031 98.0 60 20 126/66 97 Room Air 09/30 0000 Room Air 09/29 2142 132/78 09/29 1900 98 Room Air 09/29 1606 98.1 82 22 138/72 96 Room Air 09/29 1600 Room Air 09/29 1356 98.1 80 22 146/80 96 Room Air 09/29 1355 80 146/80 Intake & Output 09/30 1600 09/30 0800 09/30 0000 Intake Total 240 Output Total 400 Balance -400 240 Intake, Oral 240 Output, Urine 400 Physical Exam General Appearance: Alert, Oriented X3, Cooperative, No Acute Distress HEENT: Atraumatic, PERRLA, EOMI, Mucous Membr. moist/pink Cardiovascular: Normal S1, Normal S2, No Murmurs, irregular Lungs: diffuse rhonchi,diminished air entry over both lungs Abdomen: Normal Bowel Sounds, Soft, No Tenderness Neurological: Normal Speech Extremities: No Clubbing, No Cyanosis, No Edema Current Medications: Current Medications Sig/Jackson Start time Last Medication Dose Route Stop Time Status Admin Acetaminophen 325 MG Q6P PRN 09/28 1200 AC 09/29 PO 1000 Acetaminophen 1,000 MG Q6P PRN 09/27 2145 AC IV Albuterol Sulfate 3 ML BID 09/28 1000 AC 09/29 INH 1900 Azithromycin 500 MG DAILY 09/29 1000 AC 09/30 Sodium Chloride 250 ML IV 0900 Benzocaine/Menthol 1 TALIA Q2P PRN 09/28 1600 AC 09/30 PO 0628 Calcium/Vitamin D 500 MG DAILY 09/28 1000 AC 09/30 PO 0901 Ceftriaxone Sodium 1,000 MG DAILY 09/29 1000 AC 09/30 IV 0900 Clonazepam 0.5 MG QPM 09/28 0100 AC 09/29 PO 10/05 0057 2142 Diltiazem HCl 60 MG Q8 09/28 1400 AC 09/30 PO 0626 Docusate Sodium 100 MG DAILY NEEDED PRN 09/28 1900 AC 09/29 PO 1000 Duloxetine HCl 60 MG DAILY 09/28 1000 AC 09/30 PO 0901 Furosemide 40 MG DAILY 09/29 1000 AC 09/30 PO 0901 Guaifenesin 600 MG Q12 09/28 1156 AC 09/30 PO 0901 Guaifenesin 10 ML Q4P PRN 09/28 0330 AC 09/29 PO 2147 Insulin Aspart 0 TIDAC 09/28 0800 AC 09/29 SC 1900 Insulin Detemir 16 UNITS BID 09/28 1000 AC 09/30 SC 0901 Levothyroxine Sodium 0.05 MG DAILY AC 09/28 0700 AC 09/30 PO 0626 Losartan Potassium 50 MG DAILY 09/28 1000 AC 09/30 PO 0900 Metoprolol Succinate 12.5 MG DAILY 09/28 0230 AC 09/30 PO 0901 Omeprazole 40 MG DAILY AC 09/28 0700 AC 09/30 PO 0626 Oxycodone HCl 10 MG Q6P PRN 09/27 2145 AC PO Potassium Chloride 40 MEQ ONCE ONE 09/29 1045 DC 09/29 PO 09/29 1046 1146 Rivaroxaban 20 MG 1700 09/28 1700 AC 09/29 PO 1709 Last 24 Hrs of Lab/Bry Results Last 24 Hrs of Labs/Mics: Laboratory Tests 09/30/16 0655: Anion Gap 7, Estimated GFR > 60, BUN/Creatinine Ratio 27.1 H Assessment/Plan Assessment: Patient is a 80 year-old lady with PMH of atrial fibrillation (on Xarelto), Rheumatoid arthritis on chronic steroids, diastolic CHF, HTN, HLD, DM, hypothyroidism, obesity, who is brought in to the ED after 2-3 days of persistent fever, cough, sore throat, congestion, wheezing and difficulty breathing. Problem list: #History CHF, Afib, HTN Rate is currently in 67-101. Patient has history of CHF, last ECHO 07/23/15 ( ALISHA) showed estimated LVEF of approximately 35-40%, with global hypokinesis. ProBNP elevated to 2410 from 1040. Has mild pedal edema and bibasilar crackles. Echocardiogram results: Mild to moderate reduction in left ventricular systolic function. Mild to moderate Pulmonary hypertension.Moderate mitral and Tricuspid Regurgitation. The major factor contributing to her shortness breath is most likely her CHF exacerbation * Continue Lasix 40 mg by mouth * We'll give extra dose of IV Lasix 40 mg today * Continue Cardizem 60 mg every 6 hours * continue metoprolol succinate 12.5 mg daily * Continue losartan 50 mg daily * continue xarelto #Acute bronchitis Wheezing and rhonchi diffuse and bilateral. CXR shows no evidence of pneumonia. No acute pulmonary process. WBCs within normal limits and no fever. * O2 supplementation as needed, to keep SO2>92% * TRC/Nebs [id number] * Guaifenesin to help with the cough * We will switch IV antibiotic to oral azithromycin. #Hyperglycemia History of diabetes on Tresiba 40 units daily. * Novolog insulin SS * Levemir 16 units BID * Accuchecks TID/AC HS #Hyponatremia Most likely pseudohyponatremia in the setting of elevated glucose, corrected Na was 131-134. serum osmolality and urine osmolality are within normal limits. there is glucosuria and decreased urinary sodium excretion. This morning sodium is 135 * will repeat BEP in am Rheumatoid arthritis Recently had increased shoulder pain for which she was put on prednisone, now tapered to 5 mg daily. * continue prednisone at 5 mg daily, home dose * hydroxychloroquine 200 mg daily on hold due to possible worsening bronchospasm on hydroxychloroquine Hypothyroidism * continue levothyroxine Will continue duloxetine and clonazepam for anxiety/depression Pain control with Tylenol, IV acetaminophen, Oxycodone DVT px with Xarelto CHF diet FC Problem List: 1. Persistent cough Pain Ratin Pain Location: throat Pain Goal: Remain pain free Pain Plan: See A&P Tomorrow's Labs & Rationales: CBC and BEP
--- NOTE | 2016-09-30 09:50 | PN- Att Addend ---
Attending Addendum Attending Brief Note Patient reports improved breathing symptoms however she continues to have nonproductive cough General Appearance: Alert, No Acute Distress Neck: Supple, No JVD Cardiovascular: Regular Rate, Normal S1, Normal S2, No Murmurs Lungs: generalized coarse lung sounds Abdomen: Normal Bowel Sounds, Soft, No Tenderness Neurological: Normal Speech, Strength at 5/5 X4 Ext, Cranial Nerves 3-12 NL, Reflexes 2+ Extremities: Trace edema Vascular: Normal Pulses Assessment It appears clinically she has severe bronchitis giving rise to her respiratory symptoms. She does not appear to be in heart failure. Patient had a similar presentation about a year ago at that point sputum grew mold and her chest x-ray has been negative. On presentation she had mild fever and also a left shift. Currently she is being treated for bronchitis and also gently diuresed. Echo shows [id number] reduced LV function. Plan Change to oral antibiotics Induce send sputum for culture Continue oral diuresis TRC and nebs continue other home medications DVT prophylaxis Current Medications Sig/Jackson Start time Last Medication Dose Route Stop Time Status Admin Acetaminophen 325 MG .STK-MED ONE 09/29 957 DC PO 09/29 0959 Acetaminophen 325 MG Q6P PRN 09/28 1200 AC 09/29 PO 1000 Acetaminophen 1,000 MG Q6P PRN 09/27 2145 AC IV Albuterol Sulfate 3 ML BID 09/28 1000 AC 09/29 INH 1900 Azithromycin 500 MG DAILY 09/29 1000 AC 09/30 Sodium Chloride 250 ML IV 0900 Benzocaine/Menthol 1 TALIA Q2P PRN 09/28 1600 AC 09/30 PO 0628 Calcium/Vitamin D 500 MG DAILY 09/28 1000 AC 09/30 PO 0901 Ceftriaxone Sodium 1,000 MG DAILY 09/29 1000 AC 09/30 IV 0900 Clonazepam 0.5 MG QPM 09/28 0100 AC 09/29 PO 10/05 0057 2142 Diltiazem HCl 60 MG Q8 09/28 1400 AC 09/30 PO 0626 Docusate Sodium 100 MG .STK-MED ONE 09/29 957 DC PO 09/29 0959 Docusate Sodium 100 MG DAILY NEEDED PRN 09/28 1900 AC 09/29 PO 1000 Duloxetine HCl 60 MG DAILY 09/28 1000 AC 09/30 PO 0901 Furosemide 40 MG DAILY 09/29 1000 AC 09/30 PO 0901 Guaifenesin 600 MG Q12 09/28 1156 AC 09/30 PO 0901 Guaifenesin 10 ML Q4P PRN 09/28 0330 AC 09/29 PO 2147 Insulin Aspart 0 TIDAC 09/28 0800 AC 09/29 SC 1900 Insulin Detemir 16 UNITS BID 09/28 1000 AC 09/30 SC 0901 Levothyroxine Sodium 0.05 MG DAILY AC 09/28 0700 AC 09/30 PO 0626 Losartan Potassium 50 MG DAILY 09/28 1000 AC 09/30 PO 0900 Metoprolol Succinate 12.5 MG DAILY 09/28 0230 AC 09/30 PO 0901 Omeprazole 40 MG DAILY AC 09/28 0700 AC 09/30 PO 0626 Oxycodone HCl 10 MG Q6P PRN 09/27 2144 AC PO Potassium Chloride 40 MEQ ONCE ONE 09/29 1045 DC 09/29 PO 09/29 1046 1146 Rivaroxaban 20 MG 1700 09/28 1700 AC 09/29 PO 1709 Laboratory Tests 09/30 0655 Chemistry Sodium (137 - 145 mmol/L) 135 L Potassium (3.5 - 5.1 mmol/L) 4.2 Chloride (98 - 107 mmol/L) 101 Carbon Dioxide (22 - 30 mmol/L) 27 Anion Gap (5 - 16) 7 BUN (7 - 17 mg/dL) 19 H Creatinine (0.5 - 1.0 mg/dL) 0.7 Estimated GFR (>60 ml/min) > 60 BUN/Creatinine Ratio (7 - 25 %) 27.1 H Vital Signs Date Time Temp Pulse Resp B/P B/P Pulse O2 O2 Flow FiO2 Mean Ox Delivery Rate 09/30 0901 119 118/82 09/30 0900 119 118/82 09/30 0807 98.7 119 20 118/82 97 Room Air 09/30 0800 98 Room Air 09/30 0626 89 140/86 09/30 0031 98.0 60 20 126/66 97 Room Air 09/30 0000 Room Air 09/292 132/78 09/29 1900 98 Room Air 09/29 1606 98.1 82 22 138/72 96 Room Air 09/29 1600 Room Air 09/29 1356 98.1 80 22 146/80 96 Room Air 09/29 1355 80 146/80
--- NOTE | 2016-09-30 10:15 | PN- Cardiology ---
Subjective Subjective: The patient is awake, alert Feels mildly improved The events of the last 24 hours as well as telemetry were reviewed. Review of Systems: The review of systems is negative for chest pains, palpitations nor lightheadedness. The remainder of the 14 point review of systems is noncontributory with the exception of above. Objective Vital Signs and I&Os Vital Signs Date Time Temp Pulse Resp B/P B/P Pulse O2 O2 Flow FiO2 Mean Ox Delivery Rate 09/30 0901 119 118/82 09/30 0900 119 118/82 09/30 0807 98.7 119 20 118/82 97 Room Air 09/30 0800 98 Room Air 09/30 0626 89 140/86 09/30 0031 98.0 60 20 126/66 97 Room Air 09/30 0000 Room Air 09/29 2142 132/78 09/29 1900 98 Room Air 09/29 1606 98.1 82 22 138/72 96 Room Air 09/29 1600 Room Air 09/29 1356 98.1 80 22 146/80 96 Room Air 09/29 1355 80 146/80 Intake & Output 09/30 1600 09/30 0800 09/30 0000 09/29 1600 09/29 0800 09/29 0000 Intake Total 240 522 535 7691 Output Total 985 014 5809 450 Balance -400 240 330 -810 695 Intake, IV 250 525 Intake, Oral 240 480 340 620 Output, Urine 905 408 2196 450 Physical Exam: General: Nontoxic, no apparent distress. HEENT: Sclera and conjunctiva within normal limits, without xanthelasmas. Neck: Carotids 2+ without bruits. Respiratory: Scattered rhonchi, air movement is good, without accessory respiratory muscle use. Heart: Regular rate and rhythm, without murmurs, without JVD. Abdomen: Soft, nontender, no masses, normoactive bowel sounds. Extremities: Without clubbing, cyanosis, without edema. Neuro: Nonfocal exam, strength, 5 out of 5 Skin: Within normal limits without lesions. Psych: Mood and affect: Normal Current Medications: Current Medications Sig/Jackson Start time Last Medication Dose Route Stop Time Status Admin Acetaminophen 325 MG Q6P PRN 09/28 1200 AC 09/29 PO 1000 Acetaminophen 1,000 MG Q6P PRN 09/27 2145 AC IV Albuterol Sulfate 3 ML BID 09/28 1000 AC 09/29 INH 1900 Azithromycin 500 MG DAILY 09/29 1000 AC 09/30 Sodium Chloride 250 ML IV 0900 Benzocaine/Menthol 1 TALIA Q2P PRN 09/28 1600 AC 09/30 PO 0628 Calcium/Vitamin D 500 MG DAILY 09/28 1000 AC 09/30 PO 0901 Ceftriaxone Sodium 1,000 MG DAILY 09/29 1000 AC 09/30 IV 0900 Clonazepam 0.5 MG QPM 09/28 0100 AC 09/29 PO 10/05 0057 2142 Diltiazem HCl 60 MG Q8 09/28 1400 AC 09/30 PO 0626 Docusate Sodium 100 MG DAILY NEEDED PRN 09/28 1900 AC 09/29 PO 1000 Duloxetine HCl 60 MG DAILY 09/28 1000 AC 09/30 PO 0901 Furosemide 40 MG DAILY 09/29 1000 AC 09/30 PO 0901 Guaifenesin 600 MG Q12 09/28 1156 AC 09/30 PO 0901 Guaifenesin 10 ML Q4P PRN 09/28 0330 AC 09/29 PO 2147 Insulin Aspart 0 TIDAC 09/28 0800 AC 09/29 SC 1900 Insulin Detemir 16 UNITS BID 09/28 1000 AC 09/30 SC 0901 Levothyroxine Sodium 0.05 MG DAILY AC 09/28 0700 AC 09/30 PO 0626 Losartan Potassium 50 MG DAILY 09/28 1000 AC 09/30 PO 0900 Metoprolol Succinate 12.5 MG DAILY 09/28 0230 AC 09/30 PO 0901 Omeprazole 40 MG DAILY AC 09/28 0700 AC 09/30 PO 0626 Oxycodone HCl 10 MG Q6P PRN 09/27 2145 AC PO Potassium Chloride 40 MEQ ONCE ONE 09/29 1045 DC 09/29 PO 09/29 1046 1146 Rivaroxaban 20 MG 1700 09/28 1700 AC 09/29 PO 1709 Results Last 48 Hrs of Labs/Mics: Laboratory Tests 09/30/16 0655: Anion Gap 7, Estimated GFR > 60, BUN/Creatinine Ratio 27.1 H 09/29/16 0600: Anion Gap 9, Estimated GFR > 60, BUN/Creatinine Ratio 26.3 H Assessment/Plan Assessment/Plan [id number] w/ hx RA with recent flare and steroids, hypothyroidism, HTN, DM, chronic AF, and previous HF (HFrEF) with last echos (07/19/2015; 07/23/2015) that revealed a mild to moderate reduction in left ventricular systolic function (EF 35-45%), left atrial enlargement, mild to moderate mitral regurgitation, moderate tricuspid regurgitation, and mild to moderate pulmonary hypertension who presented to the ED with a 3-4 day complaint of worsening minimally productive cough, SOB, orthopnea, weakness, fatigue, and fever with hyponatremia and elevated NT-PRO BNP (2410 pg/ml) Dyspnea: Likely multifactorial including a potential URI with superimposed acute on chronic congestive heart failure secondary to a mixed systolic and diastolic dysfunction. There is evidence for gross fluid overload. The patient was given fluids in the ER due to hyponatremia; however, I suspect this is likely multifactorial as well. The patient's sodium level appears improved. She has diuresed only overnight and I would continue with the same. Hyponatremia: The patient has generalized metabolic derangements which include those from suboptimally controlled diabetes. Hyponatremia is likely multifactorial including possible effects from her acute respiratory issues. Her hyponatremia should be corrected with fluid restriction. Atrial fibrillation: The heart rate control is suboptimal; however, likely is secondary to her underlying respiratory issues. I would continue her current medication regimen including full anticoagulation using Xarelto. Continue telemetry? Yes
[2016-09-30 14:22] VITALS: BP 136/70
[2016-09-30 15:40] VITALS: BP 160/60
--- NOTE | 2016-09-30 16:41 | PN- Pulmonary ---
Subjective HPI/Critical Care Issues: Little better but still coughing Had significant sputum early this morning Still short of breath Fatigue Heart rate still high Objective Current Medications: Current Medications Sig/Jackson Start time Last Medication Dose Route Stop Time Status Admin Acetaminophen 325 MG Q6P PRN 09/28 1200 AC 09/29 PO 1000 Acetaminophen 1,000 MG Q6P PRN 09/27 2145 AC IV Albuterol Sulfate 3 ML BID 09/28 1000 AC 09/30 INH 1318 Azithromycin 250 MG DAILY 10/01 1000 AC PO Azithromycin 500 MG DAILY 09/29 1000 DC 09/30 Sodium Chloride 250 ML IV 0900 Benzocaine/Menthol 1 TALIA Q2P PRN 09/28 1600 AC 09/30 PO 0628 Calcium/Vitamin D 500 MG DAILY 09/28 1000 AC 09/30 PO 0901 Ceftriaxone Sodium 1,000 MG DAILY 09/29 1000 DC 09/30 IV 0900 Clonazepam 0.5 MG QPM 09/28 0100 AC 09/29 PO 10/05 0057 2142 Diltiazem HCl 60 MG Q8 09/28 1400 AC 09/30 PO 1419 Docusate Sodium 100 MG DAILY NEEDED PRN 09/28 1900 AC 09/29 PO 1000 Duloxetine HCl 60 MG DAILY 09/28 1000 AC 09/30 PO 0901 Furosemide 40 MG ONCE ONE 09/30 1200 DC 09/30 IV 09/30 1201 1419 Furosemide 40 MG DAILY 09/29 1000 AC 09/30 PO 0901 Guaifenesin 600 MG Q12 09/28 1156 AC 09/30 PO 0901 Guaifenesin 10 ML Q4P PRN 09/28 0330 AC 09/29 PO 2147 Insulin Aspart 0 TIDAC 09/28 0800 AC 09/29 SC 1900 Insulin Detemir 16 UNITS BID 09/28 1000 AC 09/30 SC 0901 Levothyroxine Sodium 0.05 MG DAILY AC 09/28 0700 AC 09/30 PO 0626 Losartan Potassium 50 MG DAILY 09/28 1000 AC 09/30 PO 0900 Metoprolol Succinate 12.5 MG DAILY 09/28 0230 AC 09/30 PO 0901 Omeprazole 40 MG DAILY AC 09/28 0700 AC 09/30 PO 0626 Oxycodone HCl 10 MG Q6P PRN 09/27 2145 AC PO Patient Medication 1 ED .STK-MED ONE 09/30 1410 DC Teaching ED 09/30 1411 Rivaroxaban 20 MG 1700 09/28 1700 AC 09/29 PO 1709 Vital Signs & I&O Last 24 Hrs of Vitals and I&O: Vital Signs Date Time Temp Pulse Resp B/P B/P Pulse O2 O2 Flow FiO2 Mean Ox Delivery Rate 09/30 1540 98.2 115 14 160/60 96 Room Air 09/30 1422 86 136/70 09/30 1419 86 136/70 09/30 1321 98 Room Air Room Air 09/30 0901 119 118/82 09/30 0900 119 118/82 09/30 0807 98.7 119 20 118/82 97 Room Air 09/30 0800 98 Room Air 09/30 0626 89 140/86 09/30 0031 98.0 60 20 126/66 97 Room Air 09/30 0000 Room Air 09/29 2142 132/78 09/29 1900 98 Room Air Intake & Output 09/30 1600 09/30 0800 09/30 0000 Intake Total 834 240 Output Total 850 400 Balance -16 -400 240 Intake, IV 294 Intake, Oral 540 240 Output, Urine 850 400 Laboratory Tests 09/30 09/29 0655 0600 Chemistry Sodium (137 - 145 mmol/L) 135 L 131 L Potassium (3.5 - 5.1 mmol/L) 4.2 3.9 Chloride (98 - 107 mmol/L) 101 95 L Carbon Dioxide (22 - 30 mmol/L) 27 27 Anion Gap (5 - 16) 7 9 BUN (7 - 17 mg/dL) 19 H 21 H Creatinine (0.5 - 1.0 mg/dL) 0.7 0.8 Estimated GFR (>60 ml/min) > 60 > 60 BUN/Creatinine Ratio (7 - 25 %) 27.1 H 26.3 H Microbiology Date/Time Procedure - Status Source Growth 09/27 1924 Influenza Virus A & B Rapid Smear - COMP NASOPHARYN 09/27 1849 Urine Culture - COMP URINE ROUT BETA STREP GROUP B 09/27 1834 Blood Culture - RES BLOOD 09/28 1819 Blood Culture - RES BLOOD Impression/Plan Impression/Plan Impression/Plan: Physical Exam: General: Nontoxic, no apparent distress. HEENT: Sclera and conjunctiva within normal limits, without xanthelasmas. Neck: Carotids 2+ without bruits. Respiratory: Diffuse rhonchi and rales, air movement is decreased at bases, scattered wheezing, without accessory respiratory muscle use. Heart: Irregularly irregular rate and rhythm, 2-6 systolic ejection murmur at left sternal border, without JVD. Abdomen: Soft, nontender, no masses, normoactive bowel sounds. Extremities: Without clubbing, cyanosis, without edema. Neuro: Nonfocal exam, strength, 5 out of 5 Skin: Within normal limits without lesions. Psych: Mood and affect: Normal IMPRESSION This is a lady with history of rheumatoid arthritis, chronic right middle lobe atelectasis with mild bronchiectasis, chronic steroid use for rheumatoid arthritis, hypothyroidism on appropriate supplementation, hypertension, diabetes , atrial fibrillation which appears chronic, significantly reduced systolic heart function with last ejection fraction noted to be 35-45%, moderate mitral regurg and tricuspid regurg, moderate pulmonary hypertension comes into the hospital with increasing cough wheezing and fatigue with hyponatremia with elevated proBNP. Issues include * Acute on chronic congestive heart failure with low ejection fraction with both mixed systolic and diastolic dysfunction with gross body fluid overload now improving slowly with diuresis * Bronchitis most likely related to heart failure versus viral bronchitis now oxygenating well with no clear evidence suggestive of acute bacterial pyogenic infection * Chronic hyponatremia most likely related to fluid overload with SIADH * Atrial fibrillation * Rheumatoid arthritis with chronic steroid use hence immunosuppressed * Right middle lobe atelectasis with mild bronchiectasis with no previous history of Pseudomonas infection * Previous mold in her sputum prob was a contaminant * Previous negative RAST test REC Continue aggressive diuresis would benefit from IV lasix Prednisone 40 qd When necessary nebulizer Continue rate control medication anticoagulation DC abx for now after today Start Symbicort 2 puffs twice a day We will follow closely
[2016-09-30 23:00] VITALS: BP 126/74
--- NOTE | 2016-10-01 03:30 | Event Note ---
Event Note Event Note: Pt had blood sugar 65. Given juice will re-check in one hour.
[2016-10-01 08:03] VITALS: BP 154/90
--- NOTE | 2016-10-01 09:15 | PN- Att Addend ---
Attending Addendum Attending Brief Note Patient reports improved breathing symptoms. General Appearance: Alert, No Acute Distress Neck: Supple, No JVD Cardiovascular: Regular Rate, Normal S1, Normal S2, No Murmurs Lungs: generalized coarse lung sounds Abdomen: Normal Bowel Sounds, Soft, No Tenderness Neurological: Normal Speech, Strength at 5/5 X4 Ext, Cranial Nerves 3-12 NL, Reflexes 2+ Extremities: Trace edema Vascular: Normal Pulses Assessment Improved breathing symptoms. Bronchitis with mild CHF. We'll continue current treatment and currently she is being followed off antibiotics. May be discharged after switching to oral Lasix. Plan Diuretics as per cardiology Continue prednisone taper TRC and nebs continue other home medications DVT prophylaxis Current Medications Sig/Jackson Start time Last Medication Dose Route Stop Time Status Admin Acetaminophen 325 MG Q6P PRN 09/28 1200 AC 09/29 PO 1000 Acetaminophen 1,000 MG Q6P PRN 09/27 2145 AC IV Albuterol Sulfate 3 ML BID 09/28 1000 AC 09/30 INH 1915 Azithromycin 250 MG DAILY 10/01 1000 CAN PO Azithromycin 500 MG DAILY 09/29 1000 DC 09/30 Sodium Chloride 250 ML IV 0900 Benzocaine/Menthol 1 TALIA Q2P PRN 09/28 1600 AC 09/30 PO 0628 Budesonide/ 2 PUF BID 09/30 2315 AC 09/30 Formoterol Fumarate INH 2330 Calcium/Vitamin D 500 MG DAILY 09/28 1000 AC 09/30 PO 0901 Ceftriaxone Sodium 1,000 MG DAILY 09/29 1000 DC 09/30 IV 0900 Clonazepam 0.5 MG QPM 09/28 0100 AC 09/30 PO 10/05 0057 2132 Diltiazem HCl 60 MG Q8 09/28 1400 AC 10/01 PO 0642 Docusate Sodium 100 MG DAILY NEEDED PRN 09/28 1900 AC 09/29 PO 1000 Duloxetine HCl 60 MG DAILY 09/28 1000 AC 09/30 PO 0901 Furosemide 40 MG DAILY 10/01 1000 AC IV Furosemide 40 MG ONCE ONE 09/30 1200 DC 09/30 IV 09/30 1201 1419 Furosemide 40 MG DAILY 09/29 1000 DC 09/30 PO 0901 Guaifenesin 600 MG Q12 09/28 1156 AC 09/30 PO 2132 Guaifenesin 10 ML Q4P PRN 09/28 0330 AC 09/29 PO 2147 Insulin Aspart 0 TIDAC 09/28 0800 AC 09/30 SC 1832 Insulin Detemir 16 UNITS BID 09/28 1000 AC 09/30 SC 2132 Levothyroxine Sodium 0.05 MG DAILY AC 09/28 0700 AC 10/01 PO 0643 Losartan Potassium 50 MG DAILY 09/28 1000 AC 09/30 PO 0900 Metoprolol Succinate 12.5 MG DAILY 09/28 0230 AC 09/30 PO 0901 Omeprazole 40 MG DAILY AC 09/28 0700 AC 10/01 PO 0643 Oxycodone HCl 10 MG Q6P PRN 09/27 2145 AC PO Patient Medication 1 ED .STK-MED ONE 09/30 1410 DC Teaching ED 09/30 1411 Prednisone 40 MG DAILY 10/01 1000 AC PO Rivaroxaban 20 MG 1700 09/28 1700 AC 09/30 PO 1831 Laboratory Tests 10/01 0647 Chemistry Sodium (137 - 145 mmol/L) 136 L Potassium (3.5 - 5.1 mmol/L) 3.7 Chloride (98 - 107 mmol/L) 100 Carbon Dioxide (22 - 30 mmol/L) 28 Anion Gap (5 - 16) 8 BUN (7 - 17 mg/dL) 17 Creatinine (0.5 - 1.0 mg/dL) 0.6 Estimated GFR (>60 ml/min) > 60 BUN/Creatinine Ratio (7 - 25 %) 28.3 H Vital Signs Date Time Temp Pulse Resp B/P B/P Pulse O2 O2 Flow FiO2 Mean Ox Delivery Rate 10/01 0803 97.8 98 24 154/90 93 Room Air 10/01 0642 95 124/76 10/01 0000 Room Air 09/30 2300 98.8 104 22 126/74 96 Room Air 09/30 2132 104 126/74 09/30 1918 98 Room Air Room Air 09/30 1540 98.2 115 14 160/60 96 Room Air 09/30 1422 86 136/70 09/30 1419 86 136/70 09/30 1321 98 Room Air Room Air
--- NOTE | 2016-10-01 09:29 | PN- Housestaff ---
Subjective Follow-up For: Acute bronchitis CHF exacerbation History of Afib and HTN Hyperglycemia Hyponatremia Rheumatoid arthritis Hypothyroidism Tele-Events Since Last Visit: Normal sinus rhythm, heart rate 63-71, no overnight events Subjective: Afebrile, hemodynamically stable, no acute overnight events reported. Patient reported improvement of her cough. She is saturating well on room air. Patient is stable and will most likely be discharged later today Review of Systems Constitutional: Reports: no symptoms. Objective Last 24 Hrs of Vital Signs/I&O Vital Signs Date Time Temp Pulse Resp B/P B/P Pulse O2 O2 Flow FiO2 Mean Ox Delivery Rate 10/01 0928 98 154/90 10/01 0927 98 154/90 10/01 0803 97.8 98 24 154/90 93 Room Air 10/01 0800 Room Air 10/01 0642 95 124/76 10/01 0000 Room Air 09/30 2300 98.8 104 22 126/74 96 Room Air 09/30 2132 104 126/74 09/30 1918 98 Room Air Room Air 09/30 1540 98.2 115 14 160/60 96 Room Air 09/30 1422 86 136/70 09/30 1419 86 136/70 09/30 1321 98 Room Air Room Air Intake & Output 10/01 1600 10/01 0800 10/01 0000 Intake Total 50 490 Output Total 750 Balance 50 -260 Intake, IV 0 0 Intake, Oral 50 490 Number 0 0 Bowel Movements Output, Urine 750 Physical Exam General Appearance: Alert, Oriented X3, Cooperative, No Acute Distress HEENT: Atraumatic, PERRLA, EOMI, Mucous Membr. moist/pink Cardiovascular: Regular Rate, Normal S1, Normal S2, No Murmurs Lungs: diffuse rhomchi and rales Abdomen: Normal Bowel Sounds, Soft, No Tenderness Neurological: Normal Speech Extremities: No Clubbing, No Cyanosis, No Edema Current Medications: Current Medications Sig/Jackson Start time Last Medication Dose Route Stop Time Status Admin Acetaminophen 325 MG Q6P PRN 09/28 1200 AC 09/29 PO 1000 Acetaminophen 1,000 MG Q6P PRN 09/27 2145 AC IV Albuterol Sulfate 2 PUF Q6 10/01 1200 AC INH Albuterol Sulfate 3 ML BID 09/28 1000 DC 09/30 INH 1915 Azithromycin 250 MG DAILY 10/01 1000 CAN PO Benzocaine/Menthol 1 TALIA Q2P PRN 09/28 1600 AC 09/30 PO 0628 Budesonide/ 2 PUF BID 09/30 2315 AC 10/01 Formoterol Fumarate INH 0927 Calcium/Vitamin D 500 MG DAILY 09/28 1000 AC 10/01 PO 0927 Clonazepam 0.5 MG QPM 09/28 0100 AC 09/30 PO 10/05 0057 2132 Diltiazem HCl 60 MG Q8 09/28 1400 AC 10/01 PO 0642 Docusate Sodium 100 MG DAILY NEEDED PRN 09/28 1900 AC 09/29 PO 1000 Duloxetine HCl 60 MG DAILY 09/28 1000 AC 10/01 PO 0928 Furosemide 40 MG DAILY 10/01 1000 AC 10/01 IV 0927 Furosemide 40 MG ONCE ONE 09/30 1200 DC 09/30 IV 09/30 1201 1419 Furosemide 40 MG DAILY 09/29 1000 DC 09/30 PO 0901 Guaifenesin 600 MG Q12 09/28 1156 AC 10/01 PO 0927 Guaifenesin 10 ML Q4P PRN 09/28 0330 AC 09/29 PO 2147 Insulin Aspart 0 TIDAC 09/28 0800 AC 09/30 SC 1832 Insulin Detemir 16 UNITS BID 09/28 1000 AC 10/01 SC 0927 Levothyroxine Sodium 0.05 MG DAILY AC 09/28 0700 AC 10/01 PO 0643 Losartan Potassium 50 MG DAILY 09/28 1000 AC 10/01 PO 0927 Metoprolol Succinate 12.5 MG DAILY 09/28 0230 AC 10/01 PO 0928 Omeprazole 40 MG DAILY AC 09/28 0700 AC 10/01 PO 0643 Oxycodone HCl 10 MG Q6P PRN 09/27 2145 AC PO Patient Medication 1 ED .STK-MED ONE 09/30 1410 KS Teaching ED 09/30 1411 Prednisone 40 MG DAILY 10/01 1000 AC 10/01 PO 10/05 1001 0927 Rivaroxaban 20 MG 1700 09/28 1700 AC 09/30 PO 1831 Last 24 Hrs of Lab/Bry Results Last 24 Hrs of Labs/Mics: Laboratory Tests 10/01/16 0647: Anion Gap 8, Estimated GFR > 60, BUN/Creatinine Ratio 28.3 H Assessment/Plan Assessment: Patient is a 80 year-old lady with PMH of atrial fibrillation (on Xarelto), Rheumatoid arthritis on chronic steroids, diastolic CHF, HTN, HLD, DM, hypothyroidism, obesity, who is brought in to the ED after 2-3 days of persistent fever, cough, sore throat, congestion, wheezing and difficulty breathing. Problem list: #History CHF, Afib, HTN Rate is currently in 67-80s. Patient has history of CHF, last ECHO 07/23/15 ( [facility]) showed estimated LVEF of approximately 35-40%, with global hypokinesis. On admission ProBNP was elevated to 2410 from 1040, she also had mild pedal edema and bibasilar crackles. The most recent Echocardiogram results: Mild to moderate reduction in left ventricular systolic function. Mild to moderate Pulmonary hypertension.Moderate mitral and Tricuspid Regurgitation. The major factor contributing to her shortness breath is most likely her CHF exacerbation * We will give 1 dose of IV Lasix 40 mg then she will be switched back to Lasix 40 mg by mouth * Continue Cardizem 60 mg every 6 hours * continue metoprolol succinate 12.5 mg daily * Continue losartan 50 mg daily * continue xarelto #Acute bronchitis Wheezing and rhonchi diffuse and bilateral. CXR shows no evidence of pneumonia. No acute pulmonary process. WBCs within normal limits and no fever. * O2 supplementation as needed, to keep SO2>92% * TRC/Nebs [id number] * We will start Symbicort 2 puffs twice daily * We will start albuterol 2 puffs every 6 hours * We will arrange home neb with duoneb twice daily * Guaifenesin to help with the cough * We will DC antibiotic #Hyperglycemia History of diabetes on Tresiba 40 units daily. * Novolog insulin SS * Levemir 16 units BID * Accuchecks TID/AC HS #Hyponatremia Most likely pseudohyponatremia in the setting of elevated glucose, corrected Na was 131-134. serum osmolality and urine osmolality are within normal limits. there is glucosuria and decreased urinary sodium excretion. This morning sodium is 136 * will repeat BEP in am Rheumatoid arthritis Recently had increased shoulder pain for which she was put on prednisone, now tapered to 5 mg daily. * continue prednisone at 2.5 mg daily, home dose * Patient will be instructed to take 40 mg prednisone for 4 days then go back to her home does of prednisone * hydroxychloroquine 200 mg daily on hold due to possible worsening bronchospasm on hydroxychloroquine Hypothyroidism * continue levothyroxine Will continue duloxetine and clonazepam for anxiety/depression Pain control with Tylenol, IV acetaminophen, Oxycodone DVT px with Xarelto CHF diet FC Problem List: 1. CHF (congestive heart failure) Pain Ratin Pain Location: na Pain Goal: Remain pain free Pain Plan: See A&P Tomorrow's Labs & Rationales: None as patient most likely will get discharged later today
--- NOTE | 2016-10-01 09:49 | PN- Pulmonary ---
Subjective HPI/Critical Care Issues: Little better after iv lasix afebrile WIshes to go home Objective Current Medications: Current Medications Sig/Jackson Start time Last Medication Dose Route Stop Time Status Admin Acetaminophen 325 MG Q6P PRN 09/28 1200 AC 09/29 PO 1000 Acetaminophen 1,000 MG Q6P PRN 09/27 2145 AC IV Albuterol Sulfate 3 ML BID 09/28 1000 AC 09/30 INH 1915 Azithromycin 250 MG DAILY 10/01 1000 CAN PO Azithromycin 500 MG DAILY 09/29 1000 DC 09/30 Sodium Chloride 250 ML IV 0900 Benzocaine/Menthol 1 TALIA Q2P PRN 09/28 1600 AC 09/30 PO 0628 Budesonide/ 2 PUF BID 09/30 2315 AC 10/01 Formoterol Fumarate INH 0927 Calcium/Vitamin D 500 MG DAILY 09/28 1000 AC 10/01 PO 0927 Ceftriaxone Sodium 1,000 MG DAILY 09/29 1000 DC 09/30 IV 0900 Clonazepam 0.5 MG QPM 09/28 0100 AC 09/30 PO 10/05 0057 2132 Diltiazem HCl 60 MG Q8 09/28 1400 AC 10/01 PO 0642 Docusate Sodium 100 MG DAILY NEEDED PRN 09/28 1900 AC 09/29 PO 1000 Duloxetine HCl 60 MG DAILY 09/28 1000 AC 10/01 PO 0928 Furosemide 40 MG DAILY 10/01 1000 AC 10/01 IV 0927 Furosemide 40 MG ONCE ONE 09/30 1200 DC 09/30 IV 09/30 1201 1419 Furosemide 40 MG DAILY 09/29 1000 DC 09/30 PO 0901 Guaifenesin 600 MG Q12 09/28 1156 AC 10/01 PO 0927 Guaifenesin 10 ML Q4P PRN 09/28 0330 AC 09/29 PO 2147 Insulin Aspart 0 TIDAC 09/28 0800 AC 09/30 SC 1832 Insulin Detemir 16 UNITS BID 09/28 1000 AC 10/01 SC 0927 Levothyroxine Sodium 0.05 MG DAILY AC 09/28 0700 AC 10/01 PO 0643 Losartan Potassium 50 MG DAILY 09/28 1000 AC 10/01 PO 0927 Metoprolol Succinate 12.5 MG DAILY 09/28 0230 AC 10/01 PO 0928 Omeprazole 40 MG DAILY AC 09/28 0700 AC 10/01 PO 0643 Oxycodone HCl 10 MG Q6P PRN 09/27 2145 AC PO Patient Medication 1 ED .STK-MED ONE 09/30 1410 DC Teaching ED 09/30 1411 Prednisone 40 MG DAILY 10/01 1000 AC 10/01 PO 0927 Rivaroxaban 20 MG 1700 09/28 1700 AC 09/30 PO 1831 Vital Signs & I&O Last 24 Hrs of Vitals and I&O: Vital Signs Date Time Temp Pulse Resp B/P B/P Pulse O2 O2 Flow FiO2 Mean Ox Delivery Rate 10/01 0928 98 154/90 10/01 0927 98 154/90 10/01 0803 97.8 98 24 154/90 93 Room Air 10/01 0642 95 124/76 10/01 0000 Room Air 09/30 2300 98.8 104 22 126/74 96 Room Air 09/30 2132 104 126/74 09/30 1918 98 Room Air Room Air 09/30 1540 98.2 115 14 160/60 96 Room Air 09/30 1422 86 136/70 09/30 1419 86 136/70 09/30 1321 98 Room Air Room Air Intake & Output 10/01 1600 10/01 0800 10/01 0000 Intake Total 50 490 Output Total 750 Balance 50 -260 Intake, IV 0 0 Intake, Oral 50 490 Number 0 0 Bowel Movements Output, Urine 750 Impression/Plan Impression/Plan Impression/Plan: Physical Exam: General: Nontoxic, no apparent distress. HEENT: Sclera and conjunctiva within normal limits, without xanthelasmas. Neck: Carotids 2+ without bruits. Respiratory: Diffuse rhonchi and rales, air movement is decreased at bases, scattered wheezing, without accessory respiratory muscle use. Heart: Irregularly irregular rate and rhythm, 2-6 systolic ejection murmur at left sternal border, without JVD. Abdomen: Soft, nontender, no masses, normoactive bowel sounds. Extremities: Without clubbing, cyanosis, without edema. Neuro: Nonfocal exam, strength, 5 out of 5 Skin: Within normal limits without lesions. Psych: Mood and affect: Normal IMPRESSION This is a lady with history of rheumatoid arthritis, chronic right middle lobe atelectasis with mild bronchiectasis, chronic steroid use for rheumatoid arthritis, hypothyroidism on appropriate supplementation, hypertension, diabetes , atrial fibrillation which appears chronic, significantly reduced systolic heart function with last ejection fraction noted to be 35-45%, moderate mitral regurg and tricuspid regurg, moderate pulmonary hypertension comes into the hospital with increasing cough wheezing and fatigue with hyponatremia with elevated proBNP. Issues include * Acute on chronic congestive heart failure with low ejection fraction with both mixed systolic and diastolic dysfunction with gross body fluid overload now improving slowly with diuresis * Bronchitis most likely related to heart failure versus viral bronchitis now oxygenating well with no clear evidence suggestive of acute bacterial pyogenic infection * Chronic hyponatremia most likely related to fluid overload with SIADH * Atrial fibrillation * Rheumatoid arthritis with chronic steroid use hence immunosuppressed * Right middle lobe atelectasis with mild bronchiectasis with no previous history of Pseudomonas infection * Previous mold in her sputum prob was a contaminant * Previous negative RAST test REC Continue aggressive diuresis would benefit from IV lasix today and switch to po Prednisone 40 qd for five days and dc When necessary nebulizer, prn please arrange a home neb with duoneb bid Continue rate control medication anticoagulation Start Symbicort 2 puffs twice a day Prn proair 2 puff q6 ok to dc
--- NOTE | 2016-10-01 11:07 | PN- Cardiology ---
Subjective Subjective: The patient is awake, alert States respiratory function is improved, continues with a mild productive cough The events of the last 24 hours as well as telemetry were reviewed. Review of Systems: The review of systems is negative for chest pains, palpitations nor lightheadedness. The remainder of the 14 point review of systems is noncontributory with the exception of above. Objective Vital Signs and I&Os Vital Signs Date Time Temp Pulse Resp B/P B/P Pulse O2 O2 Flow FiO2 Mean Ox Delivery Rate 10/01 0928 98 154/90 10/01 0927 98 154/90 10/01 0803 97.8 98 24 154/90 93 Room Air 10/01 0800 Room Air 10/01 0642 95 124/76 10/01 0000 Room Air 09/30 2300 98.8 104 22 126/74 96 Room Air 09/30 2132 104 126/74 09/30 1918 98 Room Air Room Air 09/30 1540 98.2 115 14 160/60 96 Room Air 09/30 1422 86 136/70 09/30 1419 86 136/70 09/30 1321 98 Room Air Room Air Intake & Output 10/01 1600 10/01 0800 10/01 0000 09/30 1600 09/30 0800 09/30 0000 Intake Total 50 490 834 240 Output Total 750 850 400 Balance 50 -260 -16 -400 240 Intake, IV 0 0 294 Intake, Oral 50 490 540 240 Number 0 0 Bowel Movements Output, Urine 750 850 400 Physical Exam: General: Nontoxic, no apparent distress. HEENT: Sclera and conjunctiva within normal limits, without xanthelasmas. Neck: Carotids 2+ without bruits. Respiratory: Scattered rhonchi, air movement is good, without accessory respiratory muscle use. Heart: Regular rate and rhythm, without murmurs, without JVD. Abdomen: Soft, nontender, no masses, normoactive bowel sounds. Extremities: Without clubbing, cyanosis, without edema. Neuro: Nonfocal exam, strength, 5 out of 5 Skin: Within normal limits without lesions. Psych: Mood and affect: Normal Current Medications: Current Medications Sig/Jackson Start time Last Medication Dose Route Stop Time Status Admin Acetaminophen 325 MG Q6P PRN 09/28 1200 AC 09/29 PO 1000 Acetaminophen 1,000 MG Q6P PRN 09/27 2145 AC IV Albuterol Sulfate 3 ML BID 09/28 1000 AC 09/30 INH 1915 Azithromycin 250 MG DAILY 10/01 1000 CAN PO Azithromycin 500 MG DAILY 09/29 1000 DC 09/30 Sodium Chloride 250 ML IV 0900 Benzocaine/Menthol 1 TALIA Q2P PRN 09/28 1600 AC 09/30 PO 0628 Budesonide/ 2 PUF BID 09/30 2315 AC 10/01 Formoterol Fumarate INH 0927 Calcium/Vitamin D 500 MG DAILY 09/28 1000 AC 10/01 PO 0927 Ceftriaxone Sodium 1,000 MG DAILY 09/29 1000 DC 09/30 IV 0900 Clonazepam 0.5 MG QPM 09/28 0100 AC 09/30 PO 10/05 0057 2132 Diltiazem HCl 60 MG Q8 09/28 1400 AC 10/01 PO 0642 Docusate Sodium 100 MG DAILY NEEDED PRN 09/28 1900 AC 09/29 PO 1000 Duloxetine HCl 60 MG DAILY 09/28 1000 AC 10/01 PO 0928 Furosemide 40 MG DAILY 10/01 1000 AC 10/01 IV 0927 Furosemide 40 MG ONCE ONE 09/30 1200 DC 09/30 IV 09/30 1201 1419 Furosemide 40 MG DAILY 09/29 1000 DC 09/30 PO 0901 Guaifenesin 600 MG Q12 09/28 1156 AC 10/01 PO 0927 Guaifenesin 10 ML Q4P PRN 09/28 0330 AC 09/29 PO 2147 Insulin Aspart 0 TIDAC 09/28 0800 AC 09/30 SC 1832 Insulin Detemir 16 UNITS BID 09/28 1000 AC 10/01 SC 0927 Levothyroxine Sodium 0.05 MG DAILY AC 09/28 0700 AC 10/01 PO 0643 Losartan Potassium 50 MG DAILY 09/28 1000 AC 10/01 PO 0927 Metoprolol Succinate 12.5 MG DAILY 09/28 0230 AC 10/01 PO 0928 Omeprazole 40 MG DAILY AC 09/28 0700 AC 10/01 PO 0643 Oxycodone HCl 10 MG Q6P PRN 09/27 2145 AC PO Patient Medication 1 ED .STK-MED ONE 09/30 1410 DC Teaching ED 09/30 1411 Prednisone 40 MG DAILY 10/01 1000 AC 10/01 PO 0927 Rivaroxaban 20 MG 1700 09/28 1700 AC 09/30 PO 1831 Results Last 48 Hrs of Labs/Mics: Laboratory Tests 10/01/16 0647: Anion Gap 8, Estimated GFR > 60, BUN/Creatinine Ratio 28.3 H 09/30/16 0655: Anion Gap 7, Estimated GFR > 60, BUN/Creatinine Ratio 27.1 H Assessment/Plan Assessment/Plan 80-y-o-f w/ hx RA with recent flare and steroids, hypothyroidism, HTN, DM, chronic AF, and previous HF (HFrEF) with last echos (07/19/2015; 07/23/2015) that revealed a mild to moderate reduction in left ventricular systolic function (EF 35-45%), left atrial enlargement, mild to moderate mitral regurgitation, moderate tricuspid regurgitation, and mild to moderate pulmonary hypertension who presented to the ED with a 3-4 day complaint of worsening minimally productive cough, SOB, orthopnea, weakness, fatigue, and fever with hyponatremia and elevated NT-PRO BNP (2410 pg/ml) Dyspnea: Likely multifactorial including a potential URI with superimposed acute on chronic congestive heart failure secondary to a mixed systolic and diastolic dysfunction. There is evidence for gross fluid overload. The patient was given fluids in the ER due to hyponatremia; however, I suspect this is likely multifactorial as well. The patient's sodium level appears improved. She has diuresed only overnight and I would continue with the same. Hyponatremia: The patient has generalized metabolic derangements which include those from suboptimally controlled diabetes. Hyponatremia is likely multifactorial including possible effects from her acute respiratory issues. Her hyponatremia should be corrected with fluid restriction. Atrial fibrillation: The heart rate control is suboptimal; however, likely is secondary to her underlying respiratory issues. I would continue her current medication regimen including full anticoagulation using Xarelto. Continue telemetry? No
[2016-10-01] MEDS ORDERED: PREDNISONE20 M1 PO (11:41)
[2016-10-01] MEDS ORDERED: SYMBICORT 80-10.2 GM INH (11:41)
--- NOTE | 2016-10-01 11:44 | Patient Discharge Instructions ---
Discharge Instructions General Discharge Information You were seen/treated for: Shortness breath most likely secondary to CHF exacerbation and bronchitis Special Instructions: Please follow-up with PCP within 1 week Please follow up with intelligence support officer within 1 week Diet Continue normal diet: Yes Recommended Diet: Heart Healthy Activity Full Activity/No Limits: Yes Activity Self Limited: Yes Acute Coronary Syndrome Inclusion Criteria At DC or during hospital stay patient has or had the following: ACS DIAGNOSIS No Discharge Core Measures Meds if any: Prescribed or Continued at Discharge Meds if any: NOT Prescribed or Continued at Discharge Congestive Heart Failure Inclusion Criteria At DC or during hospital stay patient has or had the following: CHF DIAGNOSIS Yes Discharge Core Measures Meds if any: Prescribed or Continued at Discharge Meds if any: NOT Prescribed or Continued at Discharge Cerebrovascular accident Inclusion Criteria At DC or during hospital stay patient has or had the following: CVA/TIA Diagnosis No Discharge Core Measures Meds if any: Prescribed or Continued at Discharge Meds if any: NOT Prescribed or Continued at Discharge Venous thromboembolism Inclusion Criteria VTE Diagnosis No VTE Type NONE VTE Confirmed by (Test) NONE Discharge Core Measures - Per Current guidelines, there needs to be overlap - treatment for the first 5 days of Warfarin therapy. - If discharged on Warfarin prior to 5 days of - overlap therapy, the patient will need to be - assessed for post discharge needs including - *Post discharge parental anticoagulation - *Warfarin and/or parental anticoagulation education - *Follow up date to check INR post discharge At least 5 days overlap therapy as Inpatient No Meds if any: Prescribed or Continued at Discharge Note: Overlap Therapy is Warfarin and Anticoagulant Meds if any: NOT Prescribed or Continued at Discharge
[2016-10-01 14:56] VITALS: BP 140/72
[2016-10-01] MEDS ORDERED: HYDROXYCHLOROQ200 M2 PO (15:03)
[2016-10-01] MEDS ORDERED: VENTOLIN HFA18 GM INH (15:38)
--- NOTE | 2016-10-23 14:30 | Discharge Summary ---
Visit Information Visit Dates Admission Date: 09/27/16 Discharge Date: 10/01/16 Hospital Course Course Attending Physician: MELISSA MAHMOOD MD Primary Care Physician: JANA ARCHER MD Consulting Request: Consulting Specialty: Pulmonary Disease Consulting Physician: Dr. Eric Arnold MD Hospital Course: 80 year-old lady with PMH of atrial fibrillation (on Xarelto), Rheumatoid arthritis on chronic steroids, diastolic CHF, HTN, HLD, DM, hypothyroidism, obesity, who presented to the ED after 2-3 days of persistent cough, sore throat , congestion, wheezing and difficulty breathing. 1. Mild CHF exacerbation On admission ProBNP was elevated to 2410. she also had mild pedal edema and bibasilar crackles. Echocardiogram showed: Mild to moderate reduction in left ventricular systolic function. Mild to moderate Pulmonary hypertension.Moderate mitral and Tricuspid Regurgitation. she was gently diuresed with IV Lasix 40 mg then switched back to home dose Lasix 40 mg by mouth. she remained stable from afib viewpoint and rate control medication was continued upon discharge. 2. Acute bronchitis on presentation patient had diffuse wheezing and rhonchi. CXR showed no evidence of pneumonia. WBCs within normal limits and no fever. initially she received IV antibiotics however later discontinued as patient did not have significant pneumonia. Started on prednisone oral with quick taper. 3. Hyponatremia Most likely pseudohyponatremia in the setting of elevated glucose, corrected Na was 131-134. serum osmolality and urine osmolality were within normal limits. 4. Rheumatoid arthritis Recently had increased shoulder pain for which she was put on prednisone, tapered to 2.5 mg daily. Patient will be instructed to take 40 mg prednisone for 4 days for bronchitis, then go back to her home does of prednisone. Advsied to resume hydroxychloroquine 200 mg daily upon discharge. Allergies: Coded Allergies: NO KNOWN ALLERGIES (NONE) (09/06/10) Significant Procedures: Echocardiogram CONCLUSIONS Poor Echo window. Mild to moderate reduction in left ventricular systolic function. Mild to moderate Pulmonary hypertension.Moderate mitral and Tricuspid Regurgitation. Disposition Summary Disposition Principal Diagnosis: CHF exacerbation Additional Diagnosis: acute bronchitis Hyponatremia Discharge Disposition: home or self care Discharge Instructions General Discharge Information Code Status: Full Code Patient's Diet: diabetic and heart healthy diet Patient's Activity: as tolerated Follow-Up Instructions/Appts: follow-up with Dr. Eric Diaz and Dr. Tobias Arnold as outpatient Medications at Discharge Discharge Medications: Continue taking these medications: Duloxetine HCl (Duloxetine HCl) 60 MG CAPSULE. 1 Capsule ORAL DAILY Qty = 30 Comments: Last Taken: 10/01/16 Time: 9AM Diltiazem HCl (Cartia Xt) 120 MG CAP.ER.24H 1 Capsule ORAL DAILY Qty = 30 Comments: Last Taken: 09/28/16 Time: 9AM Furosemide (Furosemide) 40 MG TABLET 1 Tablet ORAL DAILY Qty = 30 Comments: Last Taken: 09/30/16 Time: 9AM Esomeprazole (Nexium) 40 MG CAPSULE. 1 Capsule ORAL DAILY Qty = 30 Comments: Last Taken: 10/01/16 Time: 6AM PRILOSEC GIVEN Valsartan (Valsartan) 160 MG TABLET 1 Tablet ORAL DAILY Qty = 30 Comments: NOT GIVEN IN HOSPITAL Levothyroxine Sodium (Levothyroxine Sodium) 50 MCG TABLET 1 Tablet ORAL DAILY Qty = 30 Comments: Last Taken: 10/01/16 Time: 6AM Mv,Min #10/FA/D3/Alip Acid/Lut (Strovite One Caplet) 1 MG-1,000 UNIT-15 MG-5 MG TABLET 1 Tablet ORAL DAILY Comments: NOT GIVEN IN HOSPITAL Rivaroxaban (Xarelto) 20 MG TABLET 1 Tablet ORAL DAILY Qty = 30 Instructions: with food Comments: Last Taken: 10/01/16 Time: 5PM Metoprolol Succinate (Metoprolol Succinate) 25 MG TAB 0.5 Tablet ORAL DAILY Qty = 15 Comments: Last Taken: 10/01/16 Time: 9AM Insulin Degludec (Tresiba Flextouch U-200) 200 UNIT/ML (3 ML) INSULN.PEN 40 Units Inject into fatty tissue DAILY Qty = 9 Comments: NOT GIVEN IN HOSPITAL Clonazepam (Clonazepam) 0.5 MG TABLET 1 Tablet ORAL Every night Qty = 30 Comments: Last Taken: 09/30/16 Time: 9PM Calcium Carbonate/Vitamin D3 (Calcium 500 + D Tablet) (Unknown Strength) TABLET Unknown Dose ORAL DAILY Comments: Last Taken: 10/01/16 Time: 9AM Prednisone (Prednisone) 2.5 MG TABLET 1 Tablet ORAL DAILY Qty = 90 Comments: NOT GIVEN IN HOSPITAL Hydroxychloroquine Sulfate (Hydroxychloroquine Sulfate) 200 MG TABLET 1 Tablet ORAL DAILY Qty = 30 Instructions: . This prescription has been renewed Start taking the following new medications: Budesonide/Formoterol Fumarate (Symbicort 80-4.5 Mcg Inhaler) 80 MCG-4.5 MCG/ ACTUATION HFA.AER.AD 2 Puff Inhale through mouth TWICE DAILY Qty = 1 No Refills Comments: Last Taken: 10/01/16 Time: 9AM Prednisone (Prednisone) 20 MG TABLET 40 Milligram ORAL DAILY Qty = 8 No Refills Instructions: please take 2 tabs daily for 4 days, start tomorrow and stop after 4 days Comments: Last Taken: 10/01/16 Time: 9AM Albuterol Sulfate (Ventolin Hfa) 90 MCG HFA.AER.AD 2 Puff Inhale through mouth EVERY SIX HOURS Qty = 1 No Refills Comments: Last Taken: 10/01/16 Time: 1PM Copies To: YAKOV MORSE,TOBIAS PAIZ MD,HERNANDEZ Attending MD Review Statement Documenting Attending: MELISSA MAHMOOD MD
== END 2016-10-01 17:30 | DRG 292 ==
LOC: ERH 17:15 → ERHI 22:00 → 1NO 22:00 → ENRESERV 23:15 → 1NO 09-28 00:26
PROVIDERS: Nurse Practitioner Family; ADMIT Internal Medicine
DX: I11.0 Hypertensive heart disease with heart failure (principal); E87.1 Hypo-osmolality and hyponatremia; E11.40 Type 2 diabetes mellitus with diabetic neuropathy, unspecified; E11.65 Type 2 diabetes mellitus with hyperglycemia; I27.2 Other secondary pulmonary hypertension; I50.43 Acute on chronic combined systolic (congestive) and diastolic (congestive) heart failure; Z79.01 Long term (current) use of anticoagulants; J20.9 Acute bronchitis, unspecified; I48.2 Chronic atrial fibrillation; I08.1 Rheumatic disorders of both mitral and tricuspid valves; M06.9 Rheumatoid arthritis, unspecified; E03.9 Hypothyroidism, unspecified; E66.9 Obesity, unspecified; Z68.34 Body mass index [BMI] 34.0-34.9, adult; E78.5 Hyperlipidemia, unspecified; K21.9 Gastro-esophageal reflux disease without esophagitis; Z79.4 Long term (current) use of insulin
CPT/HCPCS: 1NSP; 84133; 84300; ERO; 36415; 81001; 82436; 82570; 87040; 87086; 87147; 87804; 87804-59; 93005; 93010; 93306; J0456; J0696; J1650; J1940; J3490; J7040

== ENCOUNTER 2018-01-20 19:03 | Emergency (ER) | payer OTHER, MEDICARE ==
[~2018-01-20] VITALS: Ht 162.6 cm; Wt 89.8 kg
[~2018-01-20 19:03] MED LIST changes: +CALCIUM 500 +1 EAC5 PO; +CALCIUM CITRAT1 EA12 PO; +CARTIA XT120 M1 PO; +CLONAZEPAM0.5 M2 PO; +DULOXETINE HCL60 MG PO; +FISH OIL 1,2001 EAC2 PO; +FUROSEMIDE40 M1 PO; +HYDROXYCHLOROQ200 M2 PO; +LEVOTHYROXINE50 MCG PO; +METOPROLOL SUCC25 M1 PO; +NEXIUM40 M1 PO; +NOVOLOG MI100 UNIT/2 SC; +PREDNISONE2.5 M1 PO; +PREDNISONE20 M1 PO; +STROVITE ONE C1 EACH PO; +SYMBICORT 80-10.2 GM INH; +TRESIBA FL200 UNIT/1 SC; +VALSARTAN160 M1 PO; +VENTOLIN HFA18 GM INH; +XARELTO20 M2 PO
[2018-01-20 20:24] LABS: ABSOLUTE BASOPHIL COUNT 0 /CUMM (0.0-0.2); ABSOLUTE EOSINOPHIL COUNT 0.1 /CUMM (0.0-0.7); ABSOLUTE GRANULOCYTE CT 4.3 /CUMM (1.4-6.5); ABSOLUTE LYMPH COUNT 1.9 /CUMM (1.2-3.4); ABSOLUTE MONOCYTE COUNT 0.6 /CUMM (0.10-0.60); BASOPHIL % 0.4 % (0.0-2.0); EOSINOPHIL % 1.2 % (0-5); GRANULOCYTE % 61.7 % (42.2-75.2); HEMATOCRIT 34.7 % (37-47); MEAN CORPUSCULAR HGB 27.1 PG (27.0-31.0); MEAN CORPUSCULAR HGB CONC 32.7 G/DL (33.0-37.0); MEAN PLATELET VOLUME 9.2 FL (7.4-10.4); PLATELET COUNT 256 /CUMM (130-400); RBC DISTRIBUTION WIDTH 16.3 % (11.5-14.5); RED BLOOD CELL CT 4.18 /CUMM (4.20-5.40); WHITE BLOOD CELL COUNT 6.9 /CUMM (4.8-10.8)
--- NOTE | 2018-01-20 21:34 | ED THROAT/DENTAL COMPLAINT ---
History of Present Illness General Chief Complaint: General Adult Stated Complaint: BLISTER ON ROOF OF MOUTH Source: patient, family, old records Exam Limitations: no limitations Vital Signs & Intake/Output Vital Signs & Intake/Output Vital Signs Date Time Temp Pulse Resp B/P B/P Pulse O2 O2 Flow FiO2 Mean Ox Delivery Rate 01/20 2153 98.7 54 20 166/67 99 Room Air 01/20 1944 96.6 100 18 177/111 98 Room Air ED Intake and Output 01/21 0000 01/20 1200 Intake Total Output Total Balance Patient 198 lb Weight Weight Estimated Measurement Method Allergies Coded Allergies: NO KNOWN ALLERGIES (NONE) (09/06/10) Reconcile Medications Budesonide/Formoterol Fumarate (Symbicort 80-4.5 Mcg Inhaler) 80 MCG-4.5 MCG/ ACTUATION HFA.AER.AD 2 PUF INH BID RESP (Reported) Calcium Citrate/Magnesium/D3 (Calcium Citrate Chewable Wafer) 250 MG CALCIUM-125 MG-200 UNIT WAFER 1 TAB PO DAILY SUPPLEMENT (Reported) Clonazepam 0.5 MG TABLET 1 TAB PO QPM SLEEP (Reported) Diltiazem HCl (Cartia Xt) 120 MG CAP.ER.24H 1 CAP PO DAILY HEART/BP (Reported ) Duloxetine HCl 60 MG CAPSULE.DR 1 CAP PO DAILY NERVE PAIN (Reported) Esomeprazole (Nexium) 40 MG CAPSULE.DR 1 CAP PO DAILY GI (Reported) Furosemide 40 MG TABLET 1 TAB PO DAILY DIURETIC (Reported) Hydroxychloroquine Sulfate 200 MG TABLET 1 TAB PO DAILY RA . Insulin Aspart Protam & Aspart (Novolog Mix 70-30 Flexpen Syrn) 100 UNIT/ML (70- 30) INSULN.PEN DM (Reported) Insulin Degludec (Tresiba Flextouch U-200) 200 UNIT/ML (3 ML) INSULN.PEN 30 UNITS SC DAILY DM (Reported) Levothyroxine Sodium 50 MCG TABLET 1 TAB PO DAILY THYROID (Reported) Metoprolol Succinate 25 MG TAB 0.5 TAB PO DAILY HEART/BP (Reported) Mv,Min #10/FA/D3/Alip Acid/Lut (Strovite One Caplet) 1 MG-1,000 UNIT-15 MG-5 MG TABLET 1 TAB PO DAILY SUPPLEMENT (Reported) Seaman-3S/Dha/Epa/Fish Oil (Fish Oil 1,200 MG Softgel) (Unknown Strength) CAPSULE (Unknown Dose) PO DAILY SUPPLEMENT (Reported) Rivaroxaban (Xarelto) 20 MG TABLET 1 TAB PO DAILY BLOOD THINNER (Reported) with food Valsartan 160 MG TABLET 1 TAB PO DAILY BP (Reported) Core Measure Meds Pre-Hospital xarelto Triage Note: RECEIVED 82 YO FEMALE WITH FAMILY C/O BLEEDING BLISTER TO THE TOP OF HER MOUTH, BLEEDING TODAY. PT IS ON XERALTO FOR AFIB Triage Nurses Notes Reviewed? yes Onset: Morning Duration: hour(s):, constant, gone now Timing: single episode today Injury Environment: home Severity: mild Modifying Factors: Worsens With: eating. LMP (ages 10-50): post menopausal : No Patient currently breastfeeds: No HPI: 1 day prior to admission patient complains of recurrent hard palate bleeding that is now stopped. She denies fever chills nausea vomiting diarrhea abdominal pain chest pain shortness breath headache dysuria oral trauma. Past History Travel History Traveled to [place] past 21 day No Medical History Any Pertinent Medical History? 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 MOTHER (Had a history of diabetes). . Hx Contributory? No Review of Systems Review of Systems Constitutional: Reports: no symptoms. EENTM: Reports: see HPI. Respiratory: Reports: no symptoms. Cardiovascular: Reports: no symptoms. GI: Reports: no symptoms. Genitourinary: Reports: no symptoms. Musculoskeletal: Reports: no symptoms. Skin: Reports: no symptoms. Neurological/Psychological: Reports: no symptoms. Hematologic/Endocrine: Reports: no symptoms. Immunologic/Allergic: Reports: no symptoms. All Other Systems: Reviewed and Negative Physical Exam Physical Exam General Appearance: well developed/nourished, alert, awake, anxious Head: atraumatic, normal appearance Eyes: Bilateral: normal appearance, PERRL, EOMI. Ears: Bilateral: canal normal, Tympanic normal. Nose: normal inspection Mouth/Throat: pharynx normal, Hard palate with elliptical 1.5 x 3.5 cm ulcer with eschar not actively bleeding Core Measures ACS in differential dx? No Sepsis Present: No Sepsis Focused Exam Completed? No Progress Differential Diagnosis: aphthous ulcer, Kaposi sarcoma Plan of Care: Orders Procedure Date/time Status PARTIAL THROMBOPLASTIN TIME 01/21 2132 Complete PROTHROMBIN TIME 01/21 2132 Complete COMPREHENSIVE METABOLIC PANEL 01/20 1947 Complete CBC WITHOUT DIFFERENTIAL 01/20 1947 Complete EKG 01/20 1947 Active Laboratory Tests 01/20/182146: PT 24.4 H, INR 2.22 H, APTT 43 H 01/20/182002: Anion Gap 9, Estimated GFR 43 L, BUN/Creatinine Ratio 30.8 H, Glucose 153 H, Calcium 9.7, Total Bilirubin 0.4, AST 30, ALT 31, Alkaline Phosphatase 88, Total Protein 7.7, Albumin 4.3, Globulin 3.4, Albumin/Globulin Ratio 1.3, CBC w Diff NO MAN DIFF REQ, RBC 4.18 L, MCV 83.0, MCH 27.1, MCHC 32.7 L, RDW 16.3 H, MPV 9.2, Gran % 61.7, Lymphocytes % 27.4, Monocytes % 9.3, Eosinophils % 1.2, Basophils % 0.4, Absolute Granulocytes 4.3, Absolute Lymphocytes 1.9, Absolute Monocytes 0.6, Absolute Eosinophils 0.1, Absolute Basophils 0 Departure Departure Time of Disposition: 2225 Disposition: HOME OR SELF CARE Condition: Stable Clinical Impression Primary Impression: Ulceration, oral mucosa Referrals: Clint MORSE,Ruthie Julio MD,Alex Coyle (PCP/Family) Additional Instructions: No xarelto for 2 days Departure Forms: Customer Survey General Discharge Information
[2018-01-20 21:53] VITALS: BP 166/67
[2018-01-20 22:05] LABS: PT 24.4 SEC (9.4-12.5); PTT 43 SEC (25-37)
== END 2018-01-20 22:34 ==
LOC: ERH 19:03
PROVIDERS: Emergency Medicine; Physician Assistant Medical
DX: K12.1 Other forms of stomatitis (principal)
CPT/HCPCS: 93005; 93010